=== PATIENT | female | born 1940 | race Caucasian/White ===

== ENCOUNTER → 2017-10-25 | Day surgery (SDC) | payer MEDICARE, OTHER ==
--- NOTE | 2017-10-14 12:41 | MH ---
cc: JAKE AMIN DATE OF ADMISSION 10/25/2017 ADMISSION DIAGNOSIS Cataract right eye. HISTORY OF PRESENT ILLNESS This 77-year-old white female is coming through [facility] for the purpose of a lens extraction of the right eye with intraocular lens implant under local anesthesia. She has noticed decreasing visual acuity interfering with her daily activities and elected to have the above procedure. Her best corrected visual acuity is counting fingers at two feet in the right eye and it is 20/100 -1 in the left eye in room light. PAST MEDICAL HISTORY The patient has a history of: 1. Hypertension 2. Heart disease 3. She has a stent in her heart and low ejection fraction. PAST SURGICAL HISTORY 1. Having the stent put in the heart 2. She has had laser peripheral iridectomy of both eyes for 3. narrow anterior chamber angles. MEDICATIONS Daily medications include: 1. Lisinopril 2. Carvedilol 3. Plavix 4. Atorvastatin 5. Aspirin ALLERGIES No known allergies. SOCIAL HISTORY She stopped smoking three years ago and has smoked over 50 years. She does not drink alcohol. FAMILY HISTORY Noncontributory REVIEW OF SYSTEMS HEAD: Patient denies severe headaches, dizziness or recent head injury. EARS: Patient denies hearing loss, ear pain, discharge or ringing in the ears. NOSE: Patient denies nasal discharge, obstruction or frequent colds. MOUTH AND THROAT: Patient denies soreness of the mouth or tongue, bleeding gums, trouble swallowing, changes in voice or sore throat. NECK: Patient denies neck pain or swelling, limitation of neck movement or neck injury. CARDIOPULMONARY SYSTEM: The patient does get some shortness of breath and sleeps on several pillow due to her decrease in heart function. She has a chronic cough from years of smoking. No orthopnea, sputum production, hemoptysis, chest pain, wheezing, or light-headedness. GI SYSTEM: Patient denies poor appetite, nausea, vomiting, abdominal pain, ulcers, hemorrhoids or change in bowel habits. SYSTEM: The patient gets up twice a night to urinate, but denies dysuria or change in urine color. NERVOUS SYSTEM: Patient denies convulsions, vertigo, stroke, numbness or weakness. PHYSICAL EXAMINATION VITAL SIGNS: Blood pressure is 100/78, pulse 72, respirations 16. HEAD: Normocephalic, atraumatic. NOSE: Without rhinorrhea. THROAT: Clear. NECK: Supple. CHEST: Clear. HEART: Regular rhythm with murmur. ABDOMEN: Without tenderness. EXTREMITIES: Without edema. NEUROLOGIC: Within normal limits. MENTAL STATUS: Within normal limits. EYE EXAMINATION The patient's best corrected visual acuity is counting fingers at two feet in the right eye and 20/100 -1 in the left eye in room light. She can only read 20/100 sized print up close. Visual kumar are full to confrontation testing. Extraocular muscle exam reveals full versions with orthophoria to Hirschberg testing. Pupils are 2 mm equal, round, and reactive to light without afferent defect. Anterior segment examination reveals a laser peripheral iridectomy present in each eye. The patient has nuclear sclerotic, posterior subcapsular, and cortical cataract changes in both eyes, greater in the right eye than the left. Intraocular pressure is 15 in the right eye and 14 in the left by applanation tonometry. Dilated fundus exam revealed sharp disks with cup-to-disk ratio 0.55 in each eye. The macula and background are within normal limits. IMPRESSION 1. Cataract right eye greater than left. 2. Status post peripheral iridectomy in each eye for a narrow anterior chamber angle. PLAN The plan is lens extraction of the right eye with intraocular lens implant under local anesthesia through [facility]. Iris retractors will be used as the patient does not dilate well. The patient has been cleared medically. She has been counseled as to the risks, benefits and alternatives and elected to proceed. I feel that cataract surgery will improve the quality of life and activities of daily living in this patient. MD CATIE Campbell/PRUDENCE /11:47 AM /12:28 PM
[~2017-10-25] VITALS: Ht 160 cm; Wt 57.2 kg
[~2017-10-25] MED LIST: *RESP: ALBUTEROL 2.5 MG/3 ML NEB (PRN) PERIprocedural Use ONLY NEB ONE; ACETYLCHOLINE CHL OPHT SOLN 1:100 2 ML VIAL ONE; ASPI1TAB69 PO; ASPI81TA23 PO; ATOR40TA16 PO; BUME0.5T PO; CARV3.12 PO; CHLORHEXIDINE GLUCONATE 2 % 1 PACK (2 CLOTHS) TOPICAL PRN; CLOP75TA PO; EPINEPHrine HCL (1:10,000) 1 MG/10 ML SYRINGE ONE; HYALURONIDASE/LIDOCAINE/BUPIVACAINE 5 ML SYR RIGHT EYE ONE; INSULIN HUMAN REGULAR 1,000 UNITS/10 ML VIAL SQ PRN; LACTATED RINGER'S 1000 ML IV PRN; LISI2.5T3 PO; METOPROLOL TARTRATE 25 MG TAB PO PRN; PILOCARPINE HCL 2% OPHT SOLN 15 ML BTL ONE; POVIDONE IODINE 5% (ANTISEPSIS KIT) 4 APPLICATIONS EACH NARE PRN; PROPARACAINE HCL 0.5% OPHT SOLN 15 ML BTL RIGHT EYE ONE; PROPOFOL 200 MG/20 ML AMP ONE; SODIUM CHLORID 0.9% 500 ML IV PRN; TOBRAMYCIN/DEXAMETHASONE OPTH OINT 3.5 GM TUBE ONE; VENTAER INH; VISCOAT OPHT IRRIG SOLN 0.75 ML SYRINGE ONE
[2017-10-25 08:50] VITALS: PULSE 122
[2017-10-25] MEDS: GATIFLOXACIN 0.5% OPHT SOLN 2.5 ML BTL RIGHT EYE SCH ×4 (08:50→08:59)
[2017-10-25] MEDS: PHENYLEPHRINE HCL 2.5% OPTH SOLN 2 ML BTL RIGHT EYE SCH ×4 (08:50→08:59)
[2017-10-25] MEDS: CYCLOPENTOLATE HCL 1% OPHT SOLN 2 ML BTL RIGHT EYE SCH ×4 (08:50→08:59)
[2017-10-25] MEDS: DICLOFENAC SOD 0.1% OPHT SOLN 2.5 ML BTL RIGHT EYE SCH ×4 (08:50→08:59)
[2017-10-25] MEDS: TROPICAMIDE 1% OPHT SOLN 15 ML BTL RIGHT EYE SCH ×4 (08:50→08:59)
[2017-10-25 09:20] VITALS: PULSE 106
[2017-10-25 11:16] VITALS: TEMP 97.8
[2017-10-25 11:45] VITALS: BP 111/68
[2017-10-25 12:35] VITALS: PULSE 98; RESP 16; O2SAT 92
--- NOTE | 2017-10-26 15:28 | MP ---
cc: JAKE LEE DATE OF SURGERY: 10/25/2017 PREOPERATIVE DIAGNOSIS: Cataract right eye. POSTOPERATIVE DIAGNOSIS: Cataract right eye. OPERATION: Extracapsular cataract extraction with posterior chamber intraocular lens implant by phacoemulsification, right eye. SURGEON: Jake Lee M.D. ANESTHESIA: Local. COMPLICATIONS: None. INDICATIONS: See history and physical previously dictated. OPERATIVE PROCEDURE: The patient had adequate retrobulbar and eyelid blocks administered in the holding area and was brought to the operating room. The right eye was prepped and draped in the usual sterile ophthalmic manner. A lid speculum was inserted in the right eye. A 4-0 silk bridle suture was placed through the conjunctiva near the superior rectus muscle and it was tagged to the drape. A fornix-based conjunctival flap was prepared spanning approximately 5 mm in width. Hemostasis was obtained with wet-field cautery. A 3.5 mm groove was made 1 mm from the limbus and dissected up to the limbus in the form of a scleral pocket incision. A stab incision was then made at the 2 o'clock position. Viscoelastic was injected into the anterior chamber. In order to maintain an adequately dilated pupil, it was elected to use iris retractors in this case. Stab incisions were made at the 1 o'clock, 3 o'clock, 5 o'clock, 8 o'clock and 10 o'clock positions. Iris retractors were then inserted through the stab incisions in the peripheral cornea and positioned to enlarge the size of the pupil. The anterior chamber was entered with a 2.75 mm keratome through the scleral pocket incision. A 360 degree continuous curvilinear capsulorrhexis was then performed. Vision blue dye was necessary in performing the capsulorrhexis in order to see the edge of the tear clearly. Hydrodissection was utilized to divide the nucleus into inner and outer components and to separate the cortex from the capsule. Phacoemulsification was then utilized to remove the nucleus. The outer nuclear layer was removed with irrigation and aspiration and short bursts of ultrasound as necessary. The cortex was removed with the irrigation-aspiration handpiece. The posterior capsule was polished with the capsule polisher. Viscoelastic was injected into the capsular bag. The intraocular lens was inspected and found to be in good condition. The lens utilized was a Oliverio, model SA60AT with a power of +23 diopters. The lens was inserted into the capsular bag. The five iris retractors were removed. The viscoelastic in the anterior chamber was then removed with the irrigation-aspiration hand piece. Viscoelastic was also removed from beneath the intraocular lens. The anterior chamber was filled with Miochol-E through the stab incision and pressurized. The wound was closed with one interrupted 10-0 nylon suture. The wound was checked for leaks and there were none. The 4-0 bridle suture was removed. The conjunctival flap was brought down over the wound and secured with cautery. Pilocarpine 2% eye drops were instilled topically. The lid speculum was removed. TobraDex ophthalmic ointment was applied. The eye was double patched and shielded. The patient tolerated the procedure well and left the Operating Room in satisfactory condition. MD CATIE Campbell/scott /1:06 PM /3:21 PM
== END | disposition home or self-care (01) ==
LOC: PHSDC 08:08
PROVIDERS: ATTEND Ophthalmology
DX: H26.9 Unspecified cataract (principal); I10 Essential (primary) hypertension; Z79.82 Long term (current) use of aspirin; Z87.891 Personal history of nicotine dependence
CPT/HCPCS: 00142; 66984; J0171; J7040; J7613; V2632

== ENCOUNTER 2017-11-29 18:43 | Inpatient (IN) | payer MEDICARE, OTHER ==
[~2017-11-29] VITALS: Ht 157.5 cm; Wt 54.0 kg
[2017-11-29] MEDS: SODIUM BICARBONATE 8.4% INJ 150 MEQ in WATER STERILE FOR INJ 850 ML IV SCH (01:00)
[~2017-11-29 18:43] MED LIST changes: -*RESP: ALBUTEROL 2.5 MG/3 ML NEB (PRN) PERIprocedural Use ONLY NEB ONE; -ACETYLCHOLINE CHL OPHT SOLN 1:100 2 ML VIAL ONE; -ASPI1TAB69 PO; -CHLORHEXIDINE GLUCONATE 2 % 1 PACK (2 CLOTHS) TOPICAL PRN; -EPINEPHrine HCL (1:10,000) 1 MG/10 ML SYRINGE ONE; -HYALURONIDASE/LIDOCAINE/BUPIVACAINE 5 ML SYR RIGHT EYE ONE; -INSULIN HUMAN REGULAR 1,000 UNITS/10 ML VIAL SQ PRN; -LACTATED RINGER'S 1000 ML IV PRN; -METOPROLOL TARTRATE 25 MG TAB PO PRN; -PILOCARPINE HCL 2% OPHT SOLN 15 ML BTL ONE; -POVIDONE IODINE 5% (ANTISEPSIS KIT) 4 APPLICATIONS EACH NARE PRN; -PROPARACAINE HCL 0.5% OPHT SOLN 15 ML BTL RIGHT EYE ONE; -PROPOFOL 200 MG/20 ML AMP ONE; -SODIUM CHLORID 0.9% 500 ML IV PRN; -TOBRAMYCIN/DEXAMETHASONE OPTH OINT 3.5 GM TUBE ONE; -VISCOAT OPHT IRRIG SOLN 0.75 ML SYRINGE ONE
[2017-11-29 18:51] VITALS: PULSE 80; RESP 17
[2017-11-29] MEDS ORDERED: SODIUM CHLORIDE 0.9% FLUSH 10 ML FLUSH IV FLUSH PRN ×2 (19:00→22:15)
--- NOTE | 2017-11-29 19:08 | PD ---
Physical Exam Narrative General: The patient is a well-developed thin appearing female in no acute distress who is disheveled appearing on examination, stool incontinence is noted. Head and Neck exam: Head is normocephalic atraumatic. Eyes: EOMI, pupils are equal round and reactive to light. Nose: Midline septum with pink mucous membranes Mouth: Dentition unremarkable. Moist mucus membranes. Posterior oropharynx is not erythematous. No tonsillar hypertrophy. Uvula midline. Airway patent. Neck: No palpable lymphadenopathy. No nuchal rigidity. No thyromegaly. Cardiovascular: Irregularly irregular with a rate in the 1 teens without murmurs, gallops, or rubs. Lungs: Decreased breath sounds in bilateral bases with scattered rhonchi and frequent productive sounding cough. No crackles audible. Abdomen: Soft, without tenderness to palpation in all 4 quadrants of the abdomen. No guarding, rebound, or rigidity. Normal bowel sounds are audible. No tenderness on palpation of McBurney's point. Negative Gomes sign. Extremities: No clubbing or cyanosis. The patient has 2+ pitting edema bilateral lower extremities. 2+ pulses in all 4 extremities. Back: No spinous process tenderness to palpation. No costovertebral angle tenderness to palpation. Neurologic Exam: Grossly nonfocal with generalized weakness. Her weakness is most prominent bilateral lower extremities. The patient is only oriented to person, however not place, time, or situation Data Data Last Documented VS Vital Signs Date Time Temp Pulse Resp B/P (MAP) Pulse Ox O2 Delivery O2 Flow Rate FiO2 11/29/17 20:04 120 18 Nasal Cannula 2.00 11/29/17 19:30 97.7 102/89 (93) Orders Orders Electrocardiogram (11/29/17 19:00) Ammonia (11/29/17 19:00) Complete Blood Count With Diff (11/29/17 19:00) Comprehensive Metabolic Panel (11/29/17 19:00) Creatine Kinase (Cpk) (11/29/17 19:00) Prothrombin Time / Inr (Pt) (11/29/17 19:00) Act Partial Throm Time (Ptt) (11/29/17 19:00) Troponin I (11/29/17 19:00) Thyroid Stimulating Hormone (11/29/17 19:00) Urinalysis - C+S If Indicated (11/29/17 19:00) Lactic Acid Sepsis Protocol (11/29/17 19:00) Blood Culture (11/29/17 19:00) Chest, Single Ap (11/29/17 19:00) Ct Brain W/O Iv Contrast(Rout) (11/29/17 19:00) Blood Glucose (11/29/17 19:00) Ecg Monitoring (11/29/17 19:00) Iv Access Insert/Monitor (11/29/17 19:00) Oximetry (11/29/17 19:00) Sodium Chloride 0.9% Flush (Ns Flush) (11/29/17 19:00) Drug Screen, Random Urine (11/29/17 19:00) Alcohol (Ethanol) (11/29/17 19:00) Pelvis Complete, Min 3 Vws (11/29/17 ) Urinary Catheter Management MAGUI.Q8H (11/29/17 19:28) Sodium Chlor 0.9% 1000 Ml Inj (Ns 1000 M (11/29/17 20:30) Warming Tama / Warming Syst PRN (11/29/17 20:19) Ceftriaxone Inj (Rocephin Inj) (11/29/17 20:30) Azithromycin Inj (Zithromax Inj) (11/29/17 20:30) Urine Culture (11/29/17 19:34) CKMB (11/29/17 19:34) CKMB% (11/29/17 19:34) B-Type Natriuretic Peptide (11/29/17 21:16) Admit Order (Ed Use Only) (11/29/17 21:41) Labs Laboratory Tests Test 11/29/17 19:34 White Blood Count 9.2 TH/MM3 Red Blood Count 4.18 MIL/MM3 Hemoglobin 11.2 GM/DL Hematocrit 34.8 % Mean Corpuscular Volume 83.4 FL Mean Corpuscular Hemoglobin 26.7 PG Mean Corpuscular Hemoglobin Concent 32.0 % Red Cell Distribution Width 22.1 % Platelet Count 146 TH/MM3 Mean Platelet Volume 9.6 FL Neutrophils (%) (Auto) 85.0 % Lymphocytes (%) (Auto) 6.6 % Monocytes (%) (Auto) 8.3 % Eosinophils (%) (Auto) 0.0 % Basophils (%) (Auto) 0.1 % Neutrophils # (Auto) 7.8 TH/MM3 Lymphocytes # (Auto) 0.6 TH/MM3 Monocytes # (Auto) 0.8 TH/MM3 Eosinophils # (Auto) 0.0 TH/MM3 Basophils # (Auto) 0.0 TH/MM3 CBC Comment AUTO DIFF Differential Comment AUTO DIFF CONFIRMED Platelet Estimate LOW Platelet Morphology Comment ENLARGED Tear Drop Cells 1+ Ovalocytes 1+ Solen Cells 1+ Keratocytes 1+ Prothrombin Time 21.1 SEC Prothromb Time International Ratio 2.1 RATIO Activated Partial Thromboplast Time 38.0 SEC Urine Color DARK-BROWN Urine Turbidity CLOUDY Urine pH 5.5 Urine Specific [place] 1.018 Urine Protein 100 mg/dL Urine Glucose (UA) NEG mg/dL Urine Ketones NEG mg/dL Urine Occult Blood SMALL Urine Nitrite NEG Urine Bilirubin SMALL Urine Urobilinogen 2.0 MG/DL Urine Leukocyte Esterase TRACE Urine RBC 9 /hpf Urine WBC 17 /hpf Urine Squamous Epithelial Cells 4 /hpf Urine Bacteria MOD /hpf Urine Hyaline Casts INNUM /lpf Urine Granular Casts 12 /lpf Urine Mucus MANY /lpf Microscopic Urinalysis Comment CULTURE INDICATED Urine Random Creatinine 154.4 MG/DL Urine Random Sodium 8 MEQ/L Blood Urea Nitrogen 118 MG/DL Creatinine 3.80 MG/DL Random Glucose 107 MG/DL Total Protein 6.3 GM/DL Albumin 3.0 GM/DL Calcium Level 8.1 MG/DL Alkaline Phosphatase 196 U/L Aspartate Amino Transf (AST/SGOT) 460 U/L Alanine Aminotransferase (ALT/SGPT) 559 U/L Total Bilirubin 4.6 MG/DL Sodium Level 131 MEQ/L Potassium Level 5.9 MEQ/L Chloride Level 95 MEQ/L Carbon Dioxide Level 22.4 MEQ/L Anion Gap 14 MEQ/L Estimat Glomerular Filtration Rate 12 ML/MIN Lactic Acid Level 2.5 mmol/L Ammonia LESS THAN 10 MCMOL/L Total Creatine Kinase 405 U/L Creatine Kinase MB 13.9 NG/ML Creatine Kinase MB % 3.4 % Troponin I 0.14 NG/ML Thyroid Stimulating Hormone 3rd Gen 4.140 uIU/ML Urine Opiates Screen NEG Urine Barbiturates Screen NEG Urine Amphetamines Screen NEG Urine Benzodiazepines Screen NEG Urine Cocaine Screen NEG Urine Cannabinoids Screen NEG Ethyl Alcohol Level LESS THAN 3 MG/DL [facility] Medical Record Reviewed: Yes Supervised Visit with BRYAN: Yes Interpretation(s) Last Impressions Head CT 3/5/18 1900 Signed Impressions: Service Date/Time: Wednesday, November 29, 2017 19:49 - CONCLUSION: 1. No acute findings in the brain. 2. Unilateral perisylvian atrophy on the left side suggests possible old infarction. Everton English MD Chest X-Ray 11/29/171899 Signed Impressions: Service Date/Time: Wednesday, November 29, 2017 19:42 - CONCLUSION: Right lower lung consolidation, increased in size when compared to prior chest x-ray 2014. The left lung is clear. Everton English MD Pelvis X-Ray 11/29/17 Signed Impressions: Service Date/Time: Wednesday, November 29, 2017 19:39 - CONCLUSION: The bony pelvic ring is grossly intact. Everton English MD Chest X-Ray 11/29/17 Signed Impressions: Service Date/Time: Wednesday, November 29, 2017 22:19 - CONCLUSION: ET tube tip is 1.4 cm above the alan. Stable large area of consolidation right lower lobe. Everton English MD Narrative Course I, Dr. Nino, have reviewed the advance practice practitioner's documentation and am in agreement, met with the patient face to face, made the diagnosis, and the medical decision making was done by me. The patient was initially evaluated by Joana, the physician anesthesia assistant. Please see their complete history and physical. *My assessment and Findings: The patient presents with a history of reportedly not being up and about like she normally is at home. Her neighbors called for a well person check at her home and the patient was found to be confused. The patient was brought in by ambulance services for evaluation and treatment. The patient was initially refusing to be transported and was placed under a Doll act due to concern for her safety. The patient was noted to be incontinent of stool prior to arrival. During the course of the patient's emergency department visit, the patient's history, examination, and differential diagnosis were reviewed with the patient. The patient was placed on a garbage worker with oximetry and frequent blood pressure monitoring. The patient had IV access obtained and blood work sent for analysis. The patient was initially provided normal saline 1 L IV fluid bolus when she was noted to be hypotensive down to a systolic blood pressure of 75. The patient was noted to be hypothermic with a temperature of 97. The patient was placed in a bear hugger. Blood cultures 2 were drawn, lactic acid was sent for analysis. The patient on chest x-ray had a an infiltrate noted. The patient was started on Rocephin 1 g IV, Zithromax 500 IV. The patient's laboratory studies were reviewed and remarkable for a white count of 9.2, hemoglobin 11.2, platelets 146 with 85 neutrophils, lymphocytes 6.6, monocytes 8.3, CMP was remarkable for a sodium of 131, potassium 5.9 with slight hemolysis, BUN 118, creatinine 3.80 consistent with acute renal failure. A Marcos catheter was placed to gravity. The patient had dark urine and only 100 mL out. The patient was continued on IV fluids. Calcium is 8.1, total bilirubin 4.6, AST 460, ALT 559, alk phos 196, ammonia level is less than 10, CPK 405, MB percent is 3.4, troponin I 0.14 which may be elevated related to the patient's tachycardia, and renal failure, however serial enzymes will be done. TSH 4.14, PT 21.1, INR 2.1, PTT 38, urinalysis shows small occult blood 9 RBCs 17 WBCs, moderate bacteria, culture indicated. Urine drug screen is negative, alcohol level less than 3. Tylenol and salicylate level are pending. Radiology studies were reviewed and remarkable for a chest x-ray that showed a right lower lung consolidation. CT scan of the brain showed no acute abnormality. Pelvis x-ray showed no acute abnormality. The patient was admitted to the hospital in critical condition and sent to a bed under the care of the infrastructure analyst service. While the patient was being observed in the emergency department the patient was noted to have cardiopulmonary arrest. The patient was found to be in asystole. The patient had ACLS protocol followed and was bagged with the BVM in preparation for intubation. Patient had chest compressions provided. The crash cart was brought to the patient's bedside and pads were applied to the patient's chest. The patient was given an initial dose of epinephrine. The patient's intensive care physician, Dr. Cui arrived at the patient's bedside and assumed care. Diagnosis Primary Impression: Pneumonia Additional Impressions: Renal failure Hyperkalemia Cardiopulmonary arrest with successful resuscitation Admitting Information Admitting Physician Requests: Admit Michelle Nino MD Nov 29, 2017 19:08
[2017-11-29 19:30] VITALS: BP 102/89; PULSE 110; RESP 18; TEMP 97.7
[2017-11-29 20:10] LABS: AUTOMATED NEUTROPHIL # 7.8 TH/MM3 (1.8-7.7); BASOPHIL % 0.1 % (0.0-2.0); HEMATOCRIT 34.8 % (35.0-46.0); HEMOGLOBIN 11.2 GM/DL (11.6-15.3); LYMPH % 6.6 % (9.0-44.0); LYMPHOCYTE # 0.6 TH/MM3 (1.0-4.8); MEAN CELL VOLUME 83.4 FL (80.0-100.0); MEAN CORPUSCULAR HEMOGLOBIN 26.7 PG (27.0-34.0); MEAN PLATELET VOLUME 9.6 FL (7.0-11.0); MONO % 8.3 % (0.0-8.0); MONOCYTE # 0.8 TH/MM3 (0-0.9); PLATELET COUNT 146 TH/MM3 (150-450); RED BLOOD COUNT 4.18 MIL/MM3 (4.00-5.30); RED CELL DISTRIBUTION WIDTH 22.1 % (11.6-17.2); WHITE BLOOD COUNT 9.2 TH/MM3 (4.0-11.0)
--- NOTE | 2017-11-29 20:16 | RADRPT ---
EXAM DATE/TIME: 11/29/2017 19:42 [facility] COMPARISON: CHEST SINGLE AP, May 12, 2015, 4:41. INDICATIONS : Syncope MEDICAL HISTORY : None. SURGICAL HISTORY : None. ENCOUNTER: Initial ACUITY: 1 day PAIN SCORE: Non-responsive. LOCATION: chest FINDINGS: Chronic consolidative ST in the right mid and lower lung with loss of delineation of the right hemidi aphragm and loss of the right heart border, similar, but larger, to prior chest x-ray in 2015. The l eft lung is clear. Left costophrenic angle and hemidiaphragms are well delineated. CONCLUSION: Right lower lung consolidation, increased in size when compared to prior chest x-ray 2014. The left lung is clear. Everton English MD on November 29, 2017 at 20:13 Board Certified Radiologist. This report was verified electronically.
--- NOTE | 2017-11-29 20:19 | RADRPT ---
EXAM DATE/TIME: 11/29/2017 19:49 [facility] COMPARISON: No previous studies available for comparison. INDICATIONS : Altered mental status. RADIATION DOSE: 56.35 CTDIvol (mGy) MEDICAL HISTORY : Cardiovascular disease. Hypertension. SURGICAL HISTORY : None. ENCOUNTER: Initial ACUITY: 1 day PAIN SCALE: 0/10 LOCATION: cranial TECHNIQUE: Multiple contiguous axial images were obtained of the head. Using automated exposure control and adj ustment of the mA and/or kV according to patient size, radiation dose was kept as low as reasonably a chievable to obtain optimal diagnostic quality images. DICOM format image data is available electro nically for review and comparison. FINDINGS: CEREBRUM: The ventricles are normal for age. No evidence of midline shift, mass lesion, hemorrhage or acute in farction. Mild asymmetric atrophy about the left sylvian fissure. No extra-axial fluid collections are seen. POSTERIOR FOSSA: The cerebellum and brainstem are intact. The 4th ventricle is midline. The cerebellopontine angle i s unremarkable. EXTRACRANIAL: The visualized portion of the orbits is intact. SKULL: The calvaria is intact. No evidence of skull fracture. CONCLUSION: 1. No acute findings in the brain. 2. Unilateral perisylvian atrophy on the left side suggests possible old infarction. Everton English MD on November 29, 2017 at 20:16 Board Certified Radiologist. This report was verified electronically.
[2017-11-29 20:22] LABS: INTERNATIONAL NORMALIZED RATIO 2.1 RATIO; PROTHROMBIN TIME - PATIENT 21.1 SEC (9.8-11.6)
--- NOTE | 2017-11-29 20:25 | RADRPT ---
EXAM DATE/TIME: 11/29/2017 19:39 [facility] COMPARISON: No previous studies available for comparison. INDICATIONS : Evaluate pelvis for trauma, possible fall MEDICAL HISTORY : None. SURGICAL HISTORY : None. ENCOUNTER: Initial ACUITY: 1 day PAIN SCORE: Non-responsive. LOCATION: Bilateral Pelvis FINDINGS: Diffuse osteopenia. The bony pelvic ring is grossly intact. Mild degenerative changes in the hips. The primary and secondary trabecular pattern of the femoral neck is intact. The arcuate lines of th e sacrum are symmetrical. Vascular calcification in the proximal thighs. CONCLUSION: The bony pelvic ring is grossly intact. Everton English MD on November 29, 2017 at 20:23 Board Certified Radiologist. This report was verified electronically.
[2017-11-29] MEDS ORDERED: AZITHROMYCIN INJ 500 MG in SODIUM CHLOR 0.9% 250 ML INJ 250 ML IV ONE (20:30)
[2017-11-29] MEDS ORDERED: cefTRIAXone INJ 1,000 MG in SODIUM CHLORIDE 0.9% INJ 100 ML IV ONE (20:30)
[2017-11-29] MEDS ORDERED: SODIUM CHLOR 0.9% 1000 ML INJ 1,000 ML IV ONE (20:30)
[2017-11-29 20:33] LABS: ALT (GPT) 559 U/L (10-53); LACTIC ACID SEPSIS PROTOCOL 2.5 mmol/L (0.4-2.0)
[2017-11-29 20:40] LABS: BACTERIA, URINE MOD /hpf; BILIRUBIN, URINE SMALL (NEG); BLOOD, URINE SMALL (NEG); GLUCOSE,URINE NEG (NEG); HYALINE CAST, URINE INNUM /lpf (RARE); KETONE, URINE NEG (NEG); MUCUS URINE MANY /lpf (OCC); NITRITE,URINE NEG (NEG); PH, URINE 5.5 (5.0-8.5); SQUAMOUS EPITHELIAL CELL URINE 4 /hpf (0-5); URINE LEUKOCYTE ESTERASE TRACE (NEG)
--- NOTE | 2017-11-29 20:45 | PD ---
HPI Chief Complaint: Altered Mental Status Time Seen by Provider: 18:55 Travel History International Travel<30 days: No Contact w/Intl Traveler<30days: No Traveled to known affect area: No History of Present Illness HPI 77-year-old female presents to the ED via EMS for evaluation of altered mental status. Per EMS report the neighbors called for a well check. The patient was placed under Doll Act by YA[facility] on scene. On presentation the patient is alert to self only. She is unable to provide any real meaningful history. She is moving extremities spontaneously but she does not really follow commands. PFSH Past Medical History Cancer: No Cardiovascular Problems: Yes (HEART DISEASE W/ LOW EF) Diabetes: No Diminished Hearing: No Endocrine: No Genitourinary: No Hepatitis: No Hiatal Hernia: No Hypertension: Yes Immune Disorder: No Musculoskeletal: No Neurologic: Yes (NEUROPATHY IN RIGHT HAND) Psychiatric: Yes (told she has schizophrenia yrs ago but doesn't take meds ) Reproductive: No Respiratory: Yes (SOB/ORTHOPNEA) Immunizations Current: Yes Thyroid Disease: No Tetanus Vaccination: < 5 Years Influenza Vaccination: No Menopausal: Yes : 0 Past Surgical History Abdominal Surgery: No AICD: No Body Medical Devices: STENTS Cardiac Surgery: Yes (STENTS) Ear Surgery: No Endocrine Surgery: No Eye Surgery: No Genitourinary Surgery: No Gynecologic Surgery: No Joint Replacement: No Oral Surgery: No Pacemaker: No Thoracic Surgery: No Other Surgery: Yes Social History Alcohol Use: No Tobacco Use: Yes (smoked 21 years, quit September 2014) Substance Use: No Allergies-Medications (Allergen,Severity, Reaction): Coded Allergies: No Known Allergies (Verified Allergy, Unknown, 10/25/17) Reported Meds & Prescriptions Reported Meds & Active Scripts Active Ventolin Hfa 18 GM Inh (Albuterol Sulfate) 90 Mcg/Act Aer 2 Puff INH Q4-6H PRN Bumetanide 0.5 Mg Tab 0.5 Mg PO DAILY Lisinopril 2.5 Mg Tab 2.5 Mg PO DAILY Reported Aspirin EC (Aspirin) 81 Mg Tabdr 81 Mg PO DAILY Carvedilol 3.125 Mg Tab 3.125 Mg PO BID Atorvastatin (Atorvastatin Calcium) 40 Mg Tab 40 Mg PO HS Clopidogrel (Clopidogrel Bisulfate) 75 Mg Tab 75 Mg PO DAILY Review of Systems Except as stated in HPI: all other systems reviewed are Neg Physical Exam Narrative GENERAL: Thin, pale, foul-smelling white female in no acute distress. Alert, oriented to self only. SKIN: Focused skin assessment warm/dry. Ecchymosis over the buttocks area. HEAD: Normocephalic. Atraumatic. EYES: No scleral icterus. No injection or drainage. PERRLA. EOMI. NECK: Supple, trachea midline. No JVD or lymphadenopathy. CARDIOVASCULAR: Irregularly irregular rate and rhythm without murmurs, gallops, or rubs. RESPIRATORY: Breath sounds coarse bilaterally. Bilaterally. No accessory muscle use. GASTROINTESTINAL: Abdomen soft, non-tender, nondistended. Active bowel sounds. Incontinent of feces. MUSCULOSKELETAL: No cyanosis. 2+ pitting edema to the mid thigh bilaterally. BACK: Nontender without obvious deformity. No CVA tenderness. Data Data Last Documented VS Vital Signs Date Time Temp Pulse Resp B/P (MAP) Pulse Ox O2 Delivery O2 Flow Rate FiO2 11/29/17 20:04 120 18 Nasal Cannula 2.00 11/29/17 19:30 97.7 102/89 (93) Orders Orders Electrocardiogram (11/29/17:00) Ammonia (11/29/17:00) Complete Blood Count With Diff (11/29/17:) Comprehensive Metabolic Panel (11/29/17:) Creatine Kinase (Cpk) (11/29/17:) Prothrombin Time / Inr (Pt) (11/29/17:00) Act Partial Throm Time (Ptt) (11/29/17:00) Troponin I (11/29/17:) Thyroid Stimulating Hormone (11/29/17:) Urinalysis - C+S If Indicated (11/29/17:00) Lactic Acid Sepsis Protocol (11/29/17:00) Blood Culture (11/29/17:00) Chest, Single Ap (11/29/17:) Ct Brain W/O Iv Contrast(Rout) (11/29/17 19:00) Blood Glucose (11/29/17:00) Ecg Monitoring (11/29/17:00) Iv Access Insert/Monitor (11/29/17:) Oximetry (11/29/17:) Sodium Chloride 0.9% Flush (Ns Flush) (11/29/17 19:00) Drug Screen, Random Urine (11/29/17 19:00) Alcohol (Ethanol) (11/29/17 19:00) Pelvis Complete, Min 3 Vws (11/29/17 ) Urinary Catheter Management MAGUI.Q8H (11/29/17 19:28) Sodium Chlor 0.9% 1000 Ml Inj (Ns 1000 M (11/29/17 20:30) Warming Dayhoit / Warming Syst PRN (11/29/17 20:19) Ceftriaxone Inj (Rocephin Inj) (11/29/17 20:30) Azithromycin Inj (Zithromax Inj) (11/29/17 20:30) Urine Culture (11/29/17 19:34) CKMB (11/29/17 19:34) CKMB% (11/29/17 19:34) B-Type Natriuretic Peptide (11/29/17 21:16) Admit Order (Ed Use Only) (11/29/17 21:41) Labs Laboratory Tests Test 11/29/17 19:34 White Blood Count 9.2 TH/MM3 Red Blood Count 4.18 MIL/MM3 Hemoglobin 11.2 GM/DL Hematocrit 34.8 % Mean Corpuscular Volume 83.4 FL Mean Corpuscular Hemoglobin 26.7 PG Mean Corpuscular Hemoglobin Concent 32.0 % Red Cell Distribution Width 22.1 % Platelet Count 146 TH/MM3 Mean Platelet Volume 9.6 FL Neutrophils (%) (Auto) 85.0 % Lymphocytes (%) (Auto) 6.6 % Monocytes (%) (Auto) 8.3 % Eosinophils (%) (Auto) 0.0 % Basophils (%) (Auto) 0.1 % Neutrophils # (Auto) 7.8 TH/MM3 Lymphocytes # (Auto) 0.6 TH/MM3 Monocytes # (Auto) 0.8 TH/MM3 Eosinophils # (Auto) 0.0 TH/MM3 Basophils # (Auto) 0.0 TH/MM3 CBC Comment AUTO DIFF Differential Comment AUTO DIFF CONFIRMED Platelet Estimate LOW Platelet Morphology Comment ENLARGED Tear Drop Cells 1+ Ovalocytes 1+ Sunny Cells 1+ Keratocytes 1+ Prothrombin Time 21.1 SEC Prothromb Time International Ratio 2.1 RATIO Activated Partial Thromboplast Time 38.0 SEC Urine Color DARK-BROWN Urine Turbidity CLOUDY Urine pH 5.5 Urine Specific [place] 1.018 Urine Protein 100 mg/dL Urine Glucose (UA) NEG mg/dL Urine Ketones NEG mg/dL Urine Occult Blood SMALL Urine Nitrite NEG Urine Bilirubin SMALL Urine Urobilinogen 2.0 MG/DL Urine Leukocyte Esterase TRACE Urine RBC 9 /hpf Urine WBC 17 /hpf Urine Squamous Epithelial Cells 4 /hpf Urine Bacteria MOD /hpf Urine Hyaline Casts INNUM /lpf Urine Granular Casts 12 /lpf Urine Mucus MANY /lpf Microscopic Urinalysis Comment CULTURE INDICATED Urine Eosinophils NONE SEEN /HPF Urine Random Creatinine 154.4 MG/DL Urine Random Sodium 8 MEQ/L Blood Urea Nitrogen 118 MG/DL Creatinine 3.80 MG/DL Random Glucose 107 MG/DL Total Protein 6.3 GM/DL Albumin 3.0 GM/DL Calcium Level 8.1 MG/DL Alkaline Phosphatase 196 U/L Aspartate Amino Transf (AST/SGOT) 460 U/L Alanine Aminotransferase (ALT/SGPT) 559 U/L Total Bilirubin 4.6 MG/DL Sodium Level 131 MEQ/L Potassium Level 5.9 MEQ/L Chloride Level 95 MEQ/L Carbon Dioxide Level 22.4 MEQ/L Anion Gap 14 MEQ/L Estimat Glomerular Filtration Rate 12 ML/MIN Lactic Acid Level 2.5 mmol/L Ammonia LESS THAN 10 MCMOL/L Total Creatine Kinase 405 U/L Creatine Kinase MB 13.9 NG/ML Creatine Kinase MB % 3.4 % Troponin I 0.14 NG/ML Thyroid Stimulating Hormone 3rd Gen 4.140 uIU/ML Urine Opiates Screen NEG Urine Barbiturates Screen NEG Urine Amphetamines Screen NEG Urine Benzodiazepines Screen NEG Urine Cocaine Screen NEG Urine Cannabinoids Screen NEG Ethyl Alcohol Level LESS THAN 3 MG/DL MDM Medical Decision Making Medical Screen Exam Complete: Yes Emergency Medical Condition: Yes Differential Diagnosis Pneumonia versus UTI versus ACS versus sepsis versus other Narrative Course 77-year-old female brought in to the ED under Doll act after well check was initiated by her neighbors. On presentation the patient is alert, oriented 1. She intermittently answers questions appropriately. She intermittently follows directions. Temp 97.7, pulse 110, BP 102/89 on presentation. On exam the patient is pale, ill-appearing. She's been incontinent of feces. Heart rate irregularly irregular, no appreciable M/R/G. IV was established. Patient was placed on nasal cannula O2 Per record review the patient has a history of hypertension, CHF, CAD, DM. I can find no evidence of history of A. fib or warfarin use. EKG rate 114, A. fib with RVR. LBBB. CXR: Right lower lobe consolidation, increased as compared to chest x-ray . Left lung clear. Head CT: No acute findings in the brain. Unilateral perisylvian atrophy of the left side suggest possible old infarction. Pelvic x-ray: Bony pelvic ring is grossly intact. CBC: WBC 9.2, neutrophil predominant. Hemoglobin 11.2. Platelets 146. Coags: INR 2.1. CMP: Sodium 131, chloride 95. BUN 118, creatinine 3.8. Potassium 5.9, slightly hemolyzed. Calcium 8.1. LFTs: Bilirubin 4.6. AST 460. ALT 559. Alkaline phosphatase 196. Ammonia less than 10. Lactic acid 2.5. Cardiac enzymes: Troponin 0.14. TSH 4.140. UA: Dark brown, cloudy, small occult blood, small bilirubin, trace leukocyte esterase, 17 WBCs, moderate bacteria, innumerable Celina casts. Culture indicated. Patient was administered 1 L normal saline, 1 g ceftriaxone, 250 mg azithromycin IV. Patient is critically ill with multisystem organ failure. I spoke with Dr. Cui who agrees to accept the patient to the ICU. Please see medicine notes for disposition. Joana Lizarraga Nov 29, 2017 20:45
[2017-11-29 20:50] LABS: URINE COLOR DARK-BROWN (YELLW/STRAW)
[2017-11-29 20:53] LABS: ALKALINE PHOSPHATASE 196 U/L (45-117); AST (GOT) 460 U/L (15-37); BICARBONATE 22.4 MEQ/L (21.0-32.0); BLOOD UREA NITROGEN 118 MG/DL (7-18); CALCIUM 8.1 MG/DL (8.5-10.1); CHLORIDE 95 MEQ/L (98-107); GLOMERULAR FILTRATION RATE 12 ML/MIN (>89); GLUCOSE,RANDOM 107 MG/DL (74-106); SODIUM (NA) 131 MEQ/L (136-145); TOTAL BILIRUBIN ADULT 4.6 MG/DL (0.2-1.0); TOTAL PROTEIN 6.3 GM/DL (6.4-8.2); TROPONIN I 0.14 NG/ML (0.02-0.05)
[2017-11-29 21:20] LABS: BURR CELLS 1+ (NORMAL); KERATOCYTES 1+ (NORMAL); OVALOCYTES 1+ (NORMAL); TEARDROP RBCS 1+ (NORMAL)
[2017-11-29] MEDS: NOREPINEPHRINE INJ 4 MG in SODIUM CHLOR 0.9% 250 ML INJ 246 ML IV PRN (22:10)
[2017-11-29] MEDS ORDERED: SODIUM CHLOR 0.9% 1000 ML INJ 1,000 ML IV SCH (22:12)
[2017-11-29 22:15] VITALS: BP 124/60; PULSE 109; RESP 18; O2SAT 100
[2017-11-29] MEDS ORDERED: fentaNYL DRIP 250 ML IV PRN (22:15)
[2017-11-29] MEDS ORDERED: ONDANSETRON HCL 4 MG/2 ML VIAL IV PUSH PRN (22:15)
[2017-11-29] MEDS ORDERED: CHLORHEXIDINE GLUCONATE 2 % 1 PACK (2 CLOTHS) TOP PRN (22:15)
[2017-11-29] MEDS ORDERED: PROPOFOL 1000 MG/100 ML INJ 100 ML IV PRN (22:15)
[2017-11-29] MEDS ORDERED: MAGNESIUM HYDROXIDE SUSP 30 ML CUP PO PRN (22:15)
[2017-11-29] MEDS ORDERED: MISCELLANEOUS NURSING INFORMATION XX SCH (22:15)
[2017-11-29] MEDS ORDERED: LACTULOSE SYRUP 20 GM/30 ML CUP PO PRN (22:15)
[2017-11-29] MEDS ORDERED: SENNOSIDES 8.6 MG TAB PO PRN (22:15)
[2017-11-29] MEDS ORDERED: BISACODYL 10 MG SUPP RECTAL PRN (22:15)
[2017-11-29] MEDS ORDERED: RESP: ALBUTEROL 2.5 MG/3 ML NEB (PRN) INH (22:15)
[2017-11-29] MEDS ORDERED: DEXTROSE 50% IN WATER 50 ML VIAL(D50) IV PUSH ONE (22:30)
[2017-11-29] MEDS ORDERED: SODIUM BICARBONATE 8.4% SOLN 50 MEQ/50 ML VIAL SLOW IVP ONE (22:30)
[2017-11-29] MEDS ORDERED: VANCOMYCIN INJ 1,000 MG in SODIUM CHLOR 0.9% 250 ML INJ 250 ML IV ONE (22:30)
[2017-11-29] MEDS ORDERED: SODIUM POLYSTYRENE SULFONATE SUSP 15 GM/60 ML CUP PO ONE (22:30)
[2017-11-29] MEDS ORDERED: TERBUTALINE INJ 1 MG/ML AMP SQ PRN (22:30)
--- NOTE | 2017-11-29 22:32 | HHI.HP ---
[facility] Service Critical Care Medicine Primary Care Physician Amanda Livingston MD Admission Diagnosis a fib, liver failure, PNA, UTI Diagnosis: (1) Cardiopulmonary arrest with successful resuscitation Diagnosis: Principal (2) Acute respiratory failure Diagnosis: Principal (3) Elevated troponin Diagnosis: Principal (4) Elevated TSH Diagnosis: Secondary (5) Elevated levels of transaminase & lactic acid dehydrogenase Diagnosis: Principal (6) Thrombocytopenia Diagnosis: Secondary (7) Mitral regurgitation Diagnosis: Principal (8) Lactic acidosis Diagnosis: Principal (9) Left bundle branch block Diagnosis: Secondary (10) History of hypertension Diagnosis: Secondary (11) Renal failure Diagnosis: Principal (12) Hyperkalemia Diagnosis: Principal (13) Hyponatremia Diagnosis: Principal (14) Hyperlipidemia Diagnosis: Secondary (15) Acute systolic CHF (congestive heart failure) Diagnosis: Principal (16) Anemia Diagnosis: Principal (17) Septic shock Diagnosis: Principal Chief Complaint: Patient brought in under [employer] act per friend request not in normal state of health Travel History International Travel<30 Days: No Contact w/Intl Traveler <30 Da: No Traveled to Known Affected Are: No Sepsis Criteria SIRS Criteria (2 or more): RR > 20 or PaCO2 < 32 Severe Sepsis (+one): Hypoperfusion Septic Shock Criteria: Lactic acid >=4 Multiple Organ Dysfunction Syn: Evidence -2 organs failing Criteria Outcome: Meets multiple organ dys. criteria History of Present Illness This is a 77-year-old female. Admission 11/29/2017. Past medical history includes ischemic cardiopathy ejection fraction 15 %, coronary artery disease status post drug-eluting stent LAD, hypertension and dyslipidemia. Patient is a chronic left bundle branch block in 2014. Patient had a cardiac catheterization 2014 with stent placement LAD. Patient also had R CA stenosis is unknown if patient had follow-up for this. Patient presented to [facility] as a Doll act. Patient was a well percent check per her friend's request was noted to be quite disheveled. Workup included baseline labs revealed potassium 5.9. Sodium 132. Creatinine of 3. Normocytic anemia. Thrombocytopenia. Lactic acid 2.5. Elevated total bilirubin/liver function tests and elevated TSH. CT brain revealed possible old left-sided CVA. Chest x-ray revealed possible right lower lobe pneumonia. Revealed likely infection. Patient received 1 L normal saline along with 1 g ceftriaxone and 5 mg azithromycin. Patient was pancultured. In the emergency department. Patient CODE BLUE due to PEA arrest. CPR including 2 mg epinephrine, 1 ampule sodium bicarbonate and 1 g of calcium chloride. Patient was emergently intubated with an 8.0 ET tube without sedation. Coalesced approximate 5 minutes. Patient did go into V. tach and required 200 J defibrillation. Postresuscitation EKG revealed sinus tachycardia with PVCs. Left bundle branch block. Left axis deviation. Patient had significant abnormalities including hyperkalemia, lactic acidosis, elevated troponin 0 0.14 in multisystem organ failure with elevated transaminases and coags. Attempts to contact healthcare proxy and daughter Deanna Denney were unsuccessful. Review of Systems ROS Limitations: Intubated Past Family Social History Allergies: Coded Allergies: No Known Allergies (Verified Allergy, Unknown, 10/25/17) Past Medical History Ischemic cardiomyopathy ejection fraction 15% Severe mitral regurgitation Hypertension Dyslipidemia Coronary artery disease Cataracts History of tobaccoism DAP Past Surgical History Right eye cataract Bilateral iridectomy Cardiac catheterization 2014 Reported Medications Lisinopril 2.5 mg p.o. daily Carvedilol 3.125 mg p.o. twice daily Clopidogrel 75 mg p.o. daily Aspirin 81 mg p.o. daily Atorvastatin 40 mg p.o. daily Bumetanide 2.5 mg p.o. daily Active Ordered Medications Reviewed in EMR Family History Father with history of colostomy. Mother's history is unknown in reviewing past medical records. Social History 40 years tobacco. Quit 2 years ago. No documented alcohol or illicit drug use Physical Exam Vital Signs Vital Signs Date Time Temp Pulse Resp B/P (MAP) Pulse Ox O2 Delivery O2 Flow Rate FiO2 11/29/17 20:04 120 18 Nasal Cannula 2.00 11/29/17 20:04 Nasal Cannula 2.00 11/29/17 19:30 97.7 110 18 102/89 (93) 2.00 11/29/17 18:51 80 17 Physical Exam GENERAL: This is a 77-year-old female currently orotracheally intubated SKIN: Cool and dry. No rash HEAD: Atraumatic. Normocephalic. EYES: Right pupil 3 mm. Left pupil 2 mm. Sluggish.. No scleral icterus. No injection or drainage. ENT: No nasal bleeding or discharge. Mucous membranes pink and moist. NECK: Trachea midline. No JVD. CARDIOVASCULAR: IRR. S1, S2 no S4. 2/6 systolic murmur at the left lower sternal border RESPIRATORY: Diminished breath sounds right lower lobe. Few crackles appreciated. No wheezing GASTROINTESTINAL: Abdomen soft, non-tender, nondistended. Hypoactive bowel sounds are appreciated MUSCULOSKELETAL: Extremities without significant peripheral edema. Right femoral arterial and central line have been placed NEUROLOGICAL: Unresponsive on the ventilator. Positive gag and corneal reflex. Positive cough. Currently not withdrawing to pain. Laboratory Laboratory Tests Test 11/29/17 19:34 White Blood Count 9.2 Red Blood Count 4.18 Hemoglobin 11.2 Hematocrit 34.8 Mean Corpuscular Volume 83.4 Mean Corpuscular Hemoglobin 26.7 Mean Corpuscular Hemoglobin Concent 32.0 Red Cell Distribution Width 22.1 Platelet Count 146 Mean Platelet Volume 9.6 Neutrophils (%) (Auto) 85.0 Lymphocytes (%) (Auto) 6.6 Monocytes (%) (Auto) 8.3 Eosinophils (%) (Auto) 0.0 Basophils (%) (Auto) 0.1 Neutrophils # (Auto) 7.8 Lymphocytes # (Auto) 0.6 Monocytes # (Auto) 0.8 Eosinophils # (Auto) 0.0 Basophils # (Auto) 0.0 CBC Comment AUTO DIFF Differential Comment AUTO DIFF CONFIRMED Platelet Estimate LOW Platelet Morphology Comment ENLARGED Tear Drop Cells 1+ Ovalocytes 1+ Sunny Cells 1+ Keratocytes 1+ Prothrombin Time 21.1 Prothromb Time International Ratio 2.1 Activated Partial Thromboplast Time 38.0 Urine Color DARK-BROWN Urine Turbidity CLOUDY Urine pH 5.5 Urine Specific [place] 1.018 Urine Protein 100 Urine Glucose (UA) NEG Urine Ketones NEG Urine Occult Blood SMALL Urine Nitrite NEG Urine Bilirubin SMALL Urine Urobilinogen 2.0 Urine Leukocyte Esterase TRACE Urine RBC 9 Urine WBC 17 Urine Squamous Epithelial Cells 4 Urine Bacteria MOD Urine Hyaline Casts INNUM Urine Granular Casts 12 Urine Mucus MANY Microscopic Urinalysis Comment CULTURE INDICATED Blood Urea Nitrogen 118 Creatinine 3.80 Random Glucose 107 Total Protein 6.3 Albumin 3.0 Calcium Level 8.1 Alkaline Phosphatase 196 Aspartate Amino Transf (AST/SGOT) 460 Alanine Aminotransferase (ALT/SGPT) 559 Total Bilirubin 4.6 Sodium Level 131 Potassium Level 5.9 Chloride Level 95 Carbon Dioxide Level 22.4 Anion Gap 14 Estimat Glomerular Filtration Rate 12 Lactic Acid Level 2.5 Ammonia LESS THAN 10 Total Creatine Kinase 405 Creatine Kinase MB 13.9 Creatine Kinase MB % 3.4 Troponin I 0.14 Thyroid Stimulating Hormone 3rd Gen 4.140 Ethyl Alcohol Level LESS THAN 3 Date/Time Source Procedure Growth Status 11/29/17 19:40 Blood Peripheral Aerobic Blood Culture Pending Received 11/29/17 19:40 Blood Peripheral Anaerobic Blood Culture Pending Received 11/29/17 19:34 Urine Clean Catch Urine Culture Pending Received Result Diagram: 11/29/17193311/29/171933 Imaging Last Impressions Head CT 11/29/171899 Signed Impressions: Service Date/Time: Wednesday, November 29, 2017 19:49 - CONCLUSION: 1. No acute findings in the brain. 2. Unilateral perisylvian atrophy on the left side suggests possible old infarction. Everton English MD Chest X-Ray 11/29/171899 Signed Impressions: Service Date/Time: Wednesday, November 29, 2017 19:42 - CONCLUSION: Right lower lung consolidation, increased in size when compared to prior chest x-ray 2014. The left lung is clear. Everton English MD Pelvis X-Ray 11/29/17 0000 Signed Impressions: Service Date/Time: Wednesday, November 29, 2017 19:39 - CONCLUSION: The bony pelvic ring is grossly intact. Everton English MD Septic Shock Reassessment Septic shock perfusion: reassessment completed Caprini VTE Risk Assessment Caprini VTE Risk Assessment: Mod/High Risk (score >= 2) VTE Pharm Contraindication: High risk for bleeding Caprini Risk Assessment Model Point Value = 1 Point Value = 2 Point Value = 3 Point Value = 5 Age 41-60 Minor surgery BMI > 25 kg/m2 Swollen legs Varicose veins or History of unexplained or recurrent spontaneous Oral contraceptives or hormone replacement Sepsis (< 1 month) Serious lung disease, including pneumonia (< 1 month) Abnormal pulmonary function Acute myocardial infarction Congestive heart failure (< 1 month) History of inflammatory bowel disease Medical patient at bed rest Age 61-74 Arthroscopic surgery Major open surgery (> 45 min) Laparoscopic surgery (> 45 min) Malignancy Confined to bed (> 72 hours) Immobilizing plaster cast Central venous access Age >= 75 History of VTE Family history of VTE Factor V Leiden Prothrombin [id number] Lupus anticoagulant Anticardiolipin antibodies Elevated serum homocysteine Heparin-induced thrombocytopenia Other congenital or acquired thrombophilia Stroke (< 1 month) Elective arthroplasty Hip, pelvis, or leg fracture Acute spinal cord injury (< 1 month) Prophylaxis Regimen Total Risk Factor Score Risk Level Prophylaxis Regimen 0-1 Low Early ambulation 2 Moderate Order ONE of the following: *Sequential Compression Device (SCD) *Heparin 5000 units SQ BID 3-4 Higher Order ONE of the following medications: *Heparin 5000 units SQ TID *Enoxaparin/Lovenox 40 mg SQ daily (WT < 150 kg, CrCl > 30 mL/min) *Enoxaparin/Lovenox 30 mg SQ daily (WT < 150 kg, CrCl > 10-29 mL/min) *Enoxaparin/Lovenox 30 mg SQ BID (WT < 150 kg, CrCl > 30 mL/min) AND/OR *Sequential Compression Device (SCD) 5 or more Highest Order ONE of the following medications: *Heparin 5000 units SQ TID (Preferred with Epidurals) *Enoxaparin/Lovenox 40 mg SQ daily (WT < 150 kg, CrCl > 30 mL/min) *Enoxaparin/Lovenox 30 mg SQ daily (WT < 150 kg, CrCl > 10-29 mL/min) *Enoxaparin/Lovenox 30 mg SQ BID (WT < 150 kg, CrCl > 30 mL/min) AND *Sequential Compression Device (SCD) Assessment and Plan Assessment and Plan Neuro/Psych: Acute encephalopathy Propofol/fentanyl drips for sedation/analgesia while intubated Goal of RA SS -[address] brain reveals 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 EEG for him is been ordered CV: Shock likely sepsis plus/minus cardiogenic History of hypertension Dyslipidemia Chronic left bundle branch block Severe mitral regurgitation Coronary disease status post stent to the LAD Ischemic cardiomyopathy ejection fraction 15% Cardiac catheterization by Dr. Montes 2014. Stent placed the LAD. RCA 80% stenosis. No drug-eluting stent at that time. Echocardiogram 2014 - ejection fraction 15% . Severe MR. Home medications are carvedilol 6 3.5 mg twice daily and lisinopril 2.5 mg p.o. daily. These been held Holding aspirin 81 mg daily and clopidogrel bisulfate 75 mg p.o. daily light of acute bleeding Holding atorvastatin 40 mg p.o. daily dyslipidemia with shock liver Holding bumetadine 0.5 milligrams daily in light of acute kidney injury. Currently on norepinephrine 25 mg/min, epinephrine 10 mg/min and vasopressin at 0.4 U/min to maintain mean arterial pressure greater than 65 Serial lactates until clear. Currently on sterile water with 3 ampules of sodium bicarbonate at 50 cc an hour Resp: Acute respiratory failure secondary to altered mental status Right lower lobe infiltrate History of tobaccoism PRVC 24/450/0.75/5/100 Ventilator bundle Albuterol/ipratropium aerosols every 6 hours with albuterol aerosols every 2 hours. Dyspnea Spontaneous breathing trials when clinically indicated Chest x-ray revealed right lower lobe infiltrate Highly doubt PE related coagulopathic state. Very poor prognosis GI: Elevated transaminases NGT to LIWS N.p.o. Famotidine for GI prophylaxis Docusate sodium/senna 1 tablet twice daily for bowel regimen : Marcos catheter has been placed for accurate I's and O's in a critically ill patient Endo: Elevated TSH Sliding scale insulin Accu-Cheks every 4 hours to maintain euglycemia with Novulin R medium regimen Check free T3/T4 in a.m. Renal: Acute kidney injury When able check CT abdomen/pelvis plus/minus renal ultrasound if unable Urine electrolytes and eosinophils pending Monitor urine output Accurate I's and O's Avoid nephrotoxic medications Heme: Normocytic anemia Thrombocytopenia Coagulopathy Monitor CBC daily. Follow trend Recheck coags in a.m. after FFP 2 units and vitamin K provided. ID: Severe sepsis Urinary tract infection Right lower lobe pneumonia/community acquired Vancomycin, piperacillin l/tazobactam, azithromycin. Also received ceftriaxone in ED Blood cultures 2, UA, influenza, sputum all pending FEN: Hyperkalemia Hyponatremia Received calcium chloride, bicarbonate/insulin/D50 in ED. Recheck pending Replace electrolytes as clinically indicated MSK: PT evaluate and treat Access -Utilize right femoral CVL day #1 placed 3/5 -Utilize right femoral arterial line day #1 placed 2/5 Prophylaxis -GI -famotidine -DVT -SCD/holding pharmacological prophylaxis in light of acute coagulopathy Critical Care: The total critical care time was 35 minutes. Time to perform other separately billable procedures was not included in the critical care time. Patient currently multisystem organ failure including respiratory failure, end-stage cardiac disease with ejection fraction of 15. Presents with shock liver, acute kidney injury and lactic acidosis. Extremely poor o prognosis. Code Status Full code Discussed Condition With Dr. Nino/ED physician. Family is unavailable and unable to be contacted. Attempted to contact daughter Deanna Denney at [phone] unsuccessful. No number for Chan Geller. Jeniffer Cancino/friend unable to contact.. This was poor last palliative care no. Patient was a DNR 2014. Problem Qualifiers (1) Acute respiratory failure: Qualified Codes: J96.01 - Acute respiratory failure with hypoxia (2) Mitral regurgitation: Qualified Codes: I34.0 - Nonrheumatic mitral (valve) insufficiency (3) Renal failure: Qualified Codes: N17.9 - Acute kidney failure, unspecified (4) Hyperlipidemia: Qualified Codes: E78.00 - Pure hypercholesterolemia, unspecified (5) Anemia: Qualified Codes: D64.9 - Anemia, unspecified Elroy Cui MD Nov 29, 2017 22:32
--- NOTE | 2017-11-29 22:42 | RADRPT ---
EXAM DATE/TIME: 11/29/2017 22:19 [facility] COMPARISON: CHEST SINGLE AP, November 29, 2017, 19:42. INDICATIONS : Evaluate intubation MEDICAL HISTORY : Cardiovascular disease. Hypertension SURGICAL HISTORY : None. ENCOUNTER: Subsequent ACUITY: 1 day PAIN SCORE: Non-responsive. LOCATION: chest FINDINGS: There is moderate patient rotation towards the right. ET tube is in place, approximately 1.4 cm abov e the alan. Prominent consolidation in the right lower lung is similar in size when compared to pr ior when taking into account patient rotation. Heart is enlarged CONCLUSION: ET tube tip is 1.4 cm above the alan. Stable large area of consolidation right lower lobe. Everton English MD on November 29, 2017 at 22:39 Board Certified Radiologist. This report was verified electronically.
[2017-11-29] MEDS ORDERED: INSULIN HUMAN REGULAR 1,000 UNITS/10 ML VIAL IV PUSH ONE (22:45)
[2017-11-29] MEDS: EPINEPHrine (1:1000) INJ 2 MG in DEXTROSE 5% IN WATER INJ 250 ML IV PRN ×2 (22:56)
[2017-11-29] MEDS: PIPERACIL-TAZO 2.25 GM PREMIX 50 ML IV SCH (23:00)
[2017-11-29] MEDS ORDERED: VASOPRESSIN INJ 40 UNITS in DEXTROSE 5% IN WATER 100ML INJ 98 ML IV SCH ×2 (23:00)
[2017-11-29] MEDS ORDERED: SODIUM BICARBONATE 8.4% INJ 50 MEQ/50 ML SYR IV PUSH ONE (23:15)
[2017-11-29 23:16] VITALS: O2SAT 100
--- NOTE | 2017-11-29 23:39 | PD.PROCEDR ---
Central Line Procedure REASON FOR PROCEDURE Central venous access PROCEDURE PERFORMED Central line placement: Right femoral CVL CONSENT Informed consent for procedure was not obtained and considered emergent due to hemodynamic instability. The risks and benefits of the procedure were discussed to include but limited to bleeding, clot formation, infection, and even . ANESTHESIA Local injection of 1% Lidocaine DESCRIPTION OF THE PROCEDURE The patient was placed in supine, mild Trendelenburg position. The area was exposed and cleansed with ChloraPrep, times two. Large sterile drape was used to cover the patient, with the site exposed, under sterile conditions including cap, face mask, sterile gown, and sterile gloves. On single attempt, the introducer needle was inserted with negative pressure in syringe and venous flash was obtained. The guide wire was then advanced without any restriction and the needle was removed. The dilator was used without any complications. Using Seldinger technique the antibiotic coated triple lumen catheter was advanced over the guide wire to a depth of 20 centimeters. The guide wire was removed. All ports were aspirated with dark venous blood return and flushed easily with sterile saline. All ports were capped. Antibiotic disc was placed around central line at puncture site. The central line was secured to the skin with two interrupted 2.0 silk sutures. The area was bandaged with sterile see- through central line bandage. RADIOLOGICAL DATA Ultrasound guidance was used to locate right femoral vein. Doppler/color flow was used to confirm venous flow. COMPLICATIONS: No apparent complications ESTIMATED BLOOD LOSS: Less than 1 cc. Elroy Cui MD Nov 29, 2017 23:39
--- NOTE | 2017-11-29 23:40 | PD.PROCEDR ---
Procedure Note Procedure DATE: 11/29/2017 PROCEDURE: Right femoral arterial catheter placement INDICATION: Hemodynamic instability DETAILS OF PROCEDURE The patient was placed in supine position. The skin was cleansed with Chloraprep. Additional barrier precautions included large sterile drape, sterile gloves, sterile gown, face mask, and hat. 1% lidocaine was used for local anesthesia. Under direct ultrasound guidance and on the initial attempt, the artery was accessed with an introducer needle. The guide wire was advanced. Using Seldinger technique 20 gauge arterial catheter was placed. The guide wire was removed. The catheter was connected to a transducer line and flushed with saline. The video monitor displayed normal arterial wave forms. The catheter was secured with 2-0 silk. A sterile dressing with antibiotic disc was applied. ESTIMATED BLOOD LOSS: minimal COMPLICATIONS: None Elroy Cui MD Nov 29, 2017 23:40
--- NOTE | 2017-11-29 23:41 | PD.PROCEDR ---
Procedure Note Procedure DATE: 11/29/2017 PROCEDURE: Orotracheal intubation INDICATION: CODE BLUE DETAILS OF PROCEDURE The patient was placed in optimal position and preoxygenated with 100% FiO2 via bag valve mask. At the start oxygen saturation was []%. The patient was administered no medications. I entered the oropharynx with a size 3 Martha laryngoscope blade and obtained a grade 2 view of the airway. On single attempt a size 8.0 cuffed endotracheal tube was passed through the vocal cords. Correct tube location was confirmed with end tidal CO2 detector and by auscultating over bilateral lung kumar. The endotracheal tube was secured with adhesive tape at a depth of 23 cm at the lips. The patient was connected to the ventilator. The patient tolerated the procedure well without any apparent complications. Oxygen saturations were maintained greater than 95% all times. STAT chest x-ray pending at time of dictation. Elroy Cui MD Nov 29, 2017 23:41
[2017-11-29 23:45] VITALS: BP 96/56; PULSE 84; RESP 24; O2SAT 95
[2017-11-30] VITALS (8 sets, daily range): BP systolic 40–138; BP diastolic 30–72; PULSE 88–106; RESP 17–24; TEMP 97.3–97.8; O2SAT 70–98
[2017-11-30 00:05] LABS: CREATININE, RANDOM URINE 154.4 MG/DL
[2017-11-30] MEDS: NOREPINEPHRINE INJ 4 MG in SODIUM CHLOR 0.9% 250 ML INJ 246 ML IV PRN ×3 (00:21→09:23)
[2017-11-30] MEDS ORDERED: fentaNYL DRIP 250 ML ONE (00:26)
[2017-11-30] MEDS: RESP: ALBUTEROL 2.5 MG/IPRATROPIUM 0.5 MG NEB (SCH) INH ×4 (01:08→12:00)
[2017-11-30] MEDS ORDERED: VANCOMYCIN INJ 1,000 MG in SODIUM CHLOR 0.9% 250 ML INJ 250 ML IV ONE (01:15)
[2017-11-30] MEDS ORDERED: DEXTROSE 50% IN WATER 50 ML VIAL(D50) IV PUSH PRN (02:00)
[2017-11-30] MEDS ORDERED: GLUCAGON 1 MG/ML VIAL OTHER PRN (02:00)
[2017-11-30] MEDS ORDERED: DOBUTamine INJ 1,000 MG in DEXTROSE 5% IN WATER INJ 170 ML IV PRN ×4 (02:15→10:15)
[2017-11-30 02:28] LABS: AUTOMATED NEUTROPHIL # 5.4 TH/MM3 (1.8-7.7); BASOPHIL % 0.1 % (0.0-2.0); EOSINOPHIL % 0.1 % (0.0-4.0); HEMATOCRIT 29.3 % (35.0-46.0); HEMOGLOBIN 9.2 GM/DL (11.6-15.3); LYMPHOCYTE # 0.4 TH/MM3 (1.0-4.8); MEAN CELL VOLUME 84.7 FL (80.0-100.0); MEAN CORPUSCULAR HEMOGLOBIN 26.7 PG (27.0-34.0); MEAN CORPUSCULAR HGB CONC 31.5 % (32.0-36.0); MEAN PLATELET VOLUME 9.3 FL (7.0-11.0); MONO % 6.1 % (0.0-8.0); MONOCYTE # 0.4 TH/MM3 (0-0.9); NEUT % 87.7 % (16.0-70.0); PLATELET COUNT 102 TH/MM3 (150-450); RED BLOOD COUNT 3.45 MIL/MM3 (4.00-5.30); RED CELL DISTRIBUTION WIDTH 22.6 % (11.6-17.2); WHITE BLOOD COUNT 6.2 TH/MM3 (4.0-11.0)
[2017-11-30 02:48] LABS: ALBUMIN 2.2 GM/DL (3.4-5.0); BICARBONATE 19.6 MEQ/L (21.0-32.0); CALCIUM 7.2 MG/DL (8.5-10.1); CALCIUM-PROTEIN CORRECTED 8.5 MG/DL (8.5-10.1); CREATININE 3.6 MG/DL (0.50-1.00); MAGNESIUM 2.3 MG/DL (1.5-2.5); PHOSPHORUS 6.6 MG/DL (2.5-4.9); TOTAL BILIRUBIN ADULT 3.5 MG/DL (0.2-1.0); TOTAL PROTEIN 4.8 GM/DL (6.4-8.2); TROPONIN I 0.27 NG/ML (0.02-0.05)
[2017-11-30 02:49] LABS: FIBRINOGEN LESS THAN 50 mg/dL (227-377)
[2017-11-30 03:47] LABS: ACANTHOCYTES 2+ (NORMAL)
[2017-11-30] MEDS: INSULIN NovoLIN REGULAR SUPPLEMENTAL SCALE SQ SCH ×3 (04:00→12:00)
[2017-11-30] MEDS ORDERED: CHLORHEXIDINE GLUCONATE 2 % 1 PACK (2 CLOTHS) TOP SCH (04:00)
--- NOTE | 2017-11-30 06:09 | PD.PROCEDR ---
Procedure Note Procedure CODE BLUE Walking into room patient in PEA arrest. Ambu bag by LAURA. Pads were placed were placed underneath the chest compressions initiated. Received 1 mg of epinephrine. Pulse check noted to be in V. tach. Defibrillator 200 J. Received sodium bicarbonate, calcium chloride 1 mg epinephrine. Return of spontaneous circulation after intubation. Around 5 minutes coded time. Central line and arterial line placed postcode. Elroy Cui MD Nov 30, 2017 06:09
[2017-11-30] MEDS: PIPERACIL-TAZO 2.25 GM PREMIX 50 ML IV SCH ×2 (06:53→15:00)
[2017-11-30] MEDS: SODIUM BICARBONATE 8.4% INJ 150 MEQ in WATER STERILE FOR INJ 850 ML IV SCH ×2 (06:57→09:22)
[2017-11-30] MEDS ORDERED: CHLORHEXIDINE 0.12% (ORAL KIT) 15 ML CUP MT SCH (08:00)
[2017-11-30] MEDS ORDERED: CLOPIDOGREL 75 MG TAB PO SCH (09:00)
[2017-11-30] MEDS ORDERED: DOCUSATE SODIUM 50 MG/SENNA 8.6 MG TAB PO SCH (09:00)
[2017-11-30] MEDS ORDERED: ASPIRIN EC 81 MG TABEC PO SCH (09:00)
[2017-11-30] MEDS ORDERED: FAMOTIDINE 20 MG/2 ML VIAL IV PUSH SCH (09:00)
[2017-11-30] MEDS ORDERED: HEPARIN SODIUM - SQ 10,000 UNITS/ML VIAL SQ SCH (09:00)
[2017-11-30] MEDS ORDERED: SODIUM CHLORIDE 0.9% FLUSH 10 ML FLUSH IV FLUSH SCH (09:00)
--- NOTE | 2017-11-30 09:20 | RADRPT ---
EXAM DATE/TIME: 11/30/2017 08:10 [facility] COMPARISON: No previous studies available for comparison. INDICATIONS : Increased BUN/Creatinine. MEDICAL HISTORY : Hypertension. Neuropathy. Heart disease. SURGICAL HISTORY : Coronary artery stent. ENCOUNTER: Initial ACUITY: 1 day PAIN SCORE: Nonresponsive. LOCATION: Bilateral flank MEASUREMENTS: RIGHT KIDNEY: 11.4 x 5.7 x 4.4 cm LEFT KIDNEY: 8.9 x 4.1 x 4.4 cm FINDINGS: RIGHT KIDNEY: Renal cortex is normal in thickness and echotexture. No hydronephrosis, stone, or mass. LEFT KIDNEY: Renal cortex is normal in thickness and echotexture. No hydronephrosis, stone, or mass. BLADDER: Completely decompressed. There is trace ascites in the abdomen. CONCLUSION: 1. Asymmetrical renal size with slightly smaller left kidney. 2. No evidence for obstructive uropathy. 3. Trace ascites. Neftaly Metzger MD on November 30, 2017 at 9:17 Board Certified Radiologist. This report was verified electronically.
[2017-11-30] MEDS: EPINEPHrine (1:1000) INJ 2 MG in DEXTROSE 5% IN WATER INJ 250 ML IV PRN ×2 (09:22)
[2017-11-30] MEDS: ARTIFICIAL TEARS OPTH SOLN 15 ML BTL EACH EYE SCH ×2 (09:33→12:42)
[2017-11-30] MEDS ORDERED: NOREPINEPHRINE INJ 4 MG in SODIUM CHLOR 0.9% 250 ML INJ 246 ML IV PRN (10:15)
[2017-11-30 11:14] LABS: CHOLESTEROL/ HDL RATIO 5.13 RATIO; FREE T3 1.26 PG/ML (2.18-3.98); FREE T4 0.91 NG/DL (0.76-1.46); HDL CHOLESTEROL 11.3 MG/DL (40.0-60.0); TROPONIN I 0.45 NG/ML (0.02-0.05)
[2017-11-30 13:56] LABS: INTERNATIONAL NORMALIZED RATIO 2.3 RATIO; PROTHROMBIN TIME - PATIENT 23.4 SEC (9.8-11.6)
--- NOTE | 2017-11-30 14:46 | PD.CONS ---
Consult Service Palliative Care . Consult Requested By Dr. Cui . Primary Care Physician Amanda Livingston MD . Reason for Consultation a. To assist with evaluation and management of symptoms including: dyspnea, chest pain. b. To assist medical decision maker(s) with: better understanding of current medical conditions; weighing benefits/burdens of medical treatment options; making medical treatment decisions. . HPI History of Present Illness Ms. Geller is a 77 year old female with past medical history of ischemic cardiomyopathy (EF 15%), coronary artery disease status post drug-eluting stent LAD, hypertension, dyslipidemia. Patient had a cardiac catheterization 2014 with stent placement LAD and R CA stenosis is unknown if patient had follow-up for this. Patient presented to [facility] on 11/29/17 as a Doll Act. Friend had requested a well check found to be quite disheveled. Initial ER evaluation revealed: * WBC 9.2, hgb 11.2, hct 34.8, platelets 146 * potassium 5.9, sodium 131, creatinine of 3.8, BUN 118. * T Bili 4.6, AST 460, ALT 559, Alk phos 196, ammonia less than 10 * Lactic acid 2.5 * TSH 4.140 * BNP 3224 * Total protein 6.3, albumin 3.0 * CT brain - revealed possible old left-sided CVA * Chest x-ray - revealed possible right lower lobe pneumonia * Urinalysis + trace leukocyte esterase, bacteria. In the emergency department, patient went into PEA arrest, CODE BLUE called. CPR started including 2 mg epinephrine, 1 ampule sodium bicarbonate and 1 g of calcium chloride. Patient was emergently intubated and placed on mech vent. Coalesced approximate 5 minutes. Patient went into V. tach, required 200 J defibrillation. Postresuscitation EKG revealed sinus tachycardia with PVCs, left bundle branch block, left axis deviation. Patient was admitted to ICU. Overall prognosis poor in this frail, elderly, critically ill patient in multisystem organ failure. Medical team spoke with son is driving from [place] anticipated to arrive on 12/01/17. Son requested keeping patient comfortable on vent until he arrives. Palliative care was consulted to assist with further clarification of goals. . Review of Systems ROS Limitations: Intubated, Unresponsive (on mech vent. ROS per nursing staff and EMR review, pt unresponsive. ) Respiratory: COMPLAINS OF: Shortness of breath Cardiovascular: COMPLAINS OF: Chest pain, Dyspnea on Exertion Hematologic/Lymphatics: COMPLAINS OF: Bruising Past Family Social History Coded Allergies: No Known Allergies (Verified Allergy, Unknown, 10/25/17) Past Medical History Ischemic cardiomyopathy ejection fraction 15% Severe mitral regurgitation Hypertension Dyslipidemia Coronary artery disease Cataracts History of tobaccoism DAP . Past Surgical History Right eye cataract Bilateral iridectomy Cardiac catheterization 2014 . Reported Medications Reported Meds & Active Scripts Active Ventolin Hfa 18 GM Inh (Albuterol Sulfate) 90 Mcg/Act Aer 2 Puff INH Q4-6H PRN Bumetanide 0.5 Mg Tab 0.5 Mg PO DAILY Lisinopril 2.5 Mg Tab 2.5 Mg PO DAILY Reported Aspirin EC (Aspirin) 81 Mg Tabdr 81 Mg PO DAILY Carvedilol 3.125 Mg Tab 3.125 Mg PO BID Atorvastatin (Atorvastatin Calcium) 40 Mg Tab 40 Mg PO HS Clopidogrel (Clopidogrel Bisulfate) 75 Mg Tab 75 Mg PO DAILY Current Medications Medications (Trade) Dose Ordered Sig/Kulwinder Route Start Time Stop Time Status Last Admin (NS Flush) 2 ml UNSCH PRN IV FLUSH 11/29/17 22:15 (NS Flush) 2 ml BID IV FLUSH 11/30/17 09:00 11/30/17 09:33 (Pepcid Inj) 10 mg Q12HR IV PUSH 11/30/17 09:00 11/30/17 09:46 (Tears Naturale Opth Soln) 1 drop TID EACH EYE 11/30/17 09:00 11/30/17 12:42 (Zofran Inj) 4 mg Q6H PRN IV PUSH 11/29/17 22:15 (Duoneb Neb) 1 ampule Q4HR NEB INH 11/30/17 00:00 11/30/17 12:00 (Albuterol Neb) 2.5 mg Q2HR NEB PRN INH 11/29/17 22:15 Miscellaneous Information 1 Q361D XX 11/29/17 22:15 (Chlorhexidine 2% Cloth) 3 pack Taper DAILY@04 TOP 11/30/17 04:00 11/26/18 03:59 (Chlorhexidine 2% Cloth) 3 pack UNSCH PRN TOP 11/29/17 22:15 (Maile-Colace) 1 tab BID PO 11/30/17 09:00 (Milk Of Magnesia Liq) 30 ml Q12H PRN PO 11/29/17 22:15 (Senokot) 17.2 mg Q12H PRN PO 11/29/17 22:15 (Dulcolax Supp) 10 mg DAILY PRN RECTAL 11/29/17 22:15 (Lactulose Liq) 30 ml DAILY PRN PO 11/29/17 22:15 (Peridex 0.12% Liq) 15 ml BID@08,20 MT 11/30/17 08:00 11/30/17 08:25 Propofol 100 ml @ 1.62 mls/hr TITRATE PRN IV 11/29/17 22:15 Fentanyl Citrate 250 ml @ 5 mls/hr TITRATE PRN IV 11/29/17 22:15 11/30/17 00:33 (Brethine Inj) 1 mg UNSCH PRN SQ 11/29/17 22:30 Piperacillin Sod/ Tazobactam Sod 50 ml @ 100 mls/hr Q8H IV 11/29/17 23:00 11/30/17 06:53 (Ecotrin Ec) 81 mg DAILY PO 11/30/17 09:00 (Plavix) 75 mg DAILY PO 11/30/17 09:00 Sodium Bicarbonate 150 meq/Sterile Water 1,000 ml @ 50 mls/hr Q20H IV 11/29/17 23:15 11/30/17 09:22 (D50w (Vial) Inj) 50 ml UNSCH PRN IV PUSH 11/30/17 02:00 (Glucagon Inj) 1 mg UNSCH PRN OTHER 11/30/17 02:00 (NovoLIN R SUPPLEMENTAL SCALE) 1 Q4HR SQ 11/30/17 04:00 11/30/17 08:00 (Heparin Inj) 5,000 units Q12HR SQ 11/30/17 09:00 Dobutamine HCl 1000 mg/Dextrose 250 ml @ 2.02 mls/hr TITRATE PRN IV 11/30/17 10:15 Norepinephrine Bitartrate 4 mg/ Sodium Chloride 250 ml @ 2 mls/hr TITRATE PRN IV 11/30/17 10:15 Family History Maternal history is unknown. Father had some abdominal problems requiring a colostomy. Both parents and grandparents lived to the 90s. . Substance Use Per prior EMR review; Tobacco: 1 PPD 40 years, quit 2 years ago. Alcohol: None Prescription med abuse: None Illicits: None Psychosocial History Per prior Pall care notes: "Patient lives locally, independently able to care for self and her dog a miniature dachshund. Family assists with providing groceries etc., patient primarily eats pre-prepared processed items that she can heat up and prepare on her own. Patient is originally from [facility]. Moved to [place] in 2003 with her for snf. He about one year after moving here. 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 Has 1 son, adult healthy now. Also supported by a close friend who lives near her and she looks too "like a daughter ", Deanna remains close to patient and son." . Spiritual/Cultural Factors Patient indicates zoroastrian has not been an important part of her life, no local affiliation, does not desire management retail intern visits. . Living Will: Never completed Health Care Surrogate: Never completed Durable Power of Parts Sales Advisor: Never completed Health Care Surrogate(s): Patient is NOT capacitated to make her own health care decisions, will not regain capacity. No known written advanced directives, according to [place] statutes, health care proxy decision making falls to her only son, Chan Geller. . Documented care wishes: No known written advanced directives. . Today's verbally stated goals: Patient is NOT capacitated to make her own health care decisions, will not regain capacity. . Family/friends goals: [facility] family arrives. . Ethical and Legal Issues Patient is NOT capacitated to make her own health care decisions, will not regain capacity. No known written advanced directives, according to [place] statutes, health care proxy decision making falls to her only son, Chan Geller. . Physical Exam Vital Signs Date Time Temp Pulse Resp B/P (MAP) Pulse Ox O2 Delivery O2 Flow Rate FiO2 11/30/17 12:00 97.4 106 24 40/30 (33) 70 11/30/17 09:23 88 137/72 11/30/17 09:22 107 147/63 11/30/17 08:45 97.3 92 24 127/64 72 11/30/17 08:33 98 100 11/30/17 08:30 97.6 94 17 138/55 71 11/30/17 08:00 98 11/30/17 08:00 97.8 88 24 137/72 (93) 70 11/30/17 07:00 70 Mechanical Ventilator 100 11/30/17 03:41 93 80 11/30/17 03:00 131 110/65 11/30/17 02:37 97 80 11/30/17 02:24 11/30/17 00:55 97 100 11/30/17 00:21 41 135/55 11/29/17 23:45 84 24 95 Ventilator 100 96/56 (69) 11/29/17 23:16 100 100 11/29/17 23:06 62 56/37 11/29/17 22:56 109 65/41 11/29/17 22:16 100 11/29/17 22:15 109 18 124/60 (81) 100 11/29/17 22:15 100 100 11/29/17 22:10 87 11/29/17 20:04 120 18 Nasal Cannula 2.00 11/29/17 20:04 Nasal Cannula 2.00 11/29/17 19:30 97.7 110 18 102/89 (93) 2.00 11/29/17 18:51 80 17 11/30/17 12/01/17 19:00 07:00 Intake Total 208 ml Balance 208 ml Cryoprecipitate 208 ml Exam CONSTITUTIONAL/GENERAL: This is an elderly, frail, critically ill patient. TUBES/LINES/DRAINS:ETT, OG, right femoral line CL and A Line, PIV bilateral hands, catheter, SCDs. SKIN: No jaundice, rashes, or lesions. Ecchymoses on upper extremities. No wounds seen anteriorly. Skin temperature appropriate. Not diaphoretic. HEAD: Atraumatic. Normocephalic. EYES: eyes closed. ENT: Unable to assess hearing. Nose without bleeding or purulent drainage. Throat difficult to visualize due to tubes. NECK: Trachea midline. CARDIOVASCULAR: irregular, tachycardic. RESPIRATORY/CHEST: On mech vent, course breath sounds. GASTROINTESTINAL: Abdomen soft, distended. + BS. Liquid foul smelling stool noted. GENITOURINARY: Without palpable bladder distension. Marcos catheter in place. MUSCULOSKELETAL: Extremities without clubbing, cyanosis, or edema. No mottling or clubbing. LYMPHATICS: No palpable cervical or supraclavicular adenopathy. NEUROLOGICAL: Unresponsive. PSYCHIATRIC: Unresponsive . Diagnostic Tests Laboratory Laboratory Tests Test 3/5/18 19:34 11/29/17 23:00 11/29/17 23:37 11/30/17 01:50 White Blood Count 9.2 TH/MM3 (4.0-11.0) 6.2 TH/MM3 (4.0-11.0) Red Blood Count 4.18 MIL/MM3 (4.00-5.30) 3.45 MIL/MM3 (4.00-5.30) Hemoglobin 11.2 GM/DL (11.6-15.3) 9.2 GM/DL (11.6-15.3) Hematocrit 34.8 % (35.0-46.0) 29.3 % (35.0-46.0) Mean Corpuscular Volume 83.4 FL (80.0-100.0) 84.7 FL (80.0-100.0) Mean Corpuscular Hemoglobin 26.7 PG (27.0-34.0) 26.7 PG (27.0-34.0) Mean Corpuscular Hemoglobin Concent 32.0 % (32.0-36.0) 31.5 % (32.0-36.0) Red Cell Distribution Width 22.1 % (11.6-17.2) 22.6 % (11.6-17.2) Platelet Count 146 TH/MM3 (150-450) 102 TH/MM3 (150-450) Mean Platelet Volume 9.6 FL (7.0-11.0) 9.3 FL (7.0-11.0) Neutrophils (%) (Auto) 85.0 % (16.0-70.0) 87.7 % (16.0-70.0) Lymphocytes (%) (Auto) 6.6 % (9.0-44.0) 6.0 % (9.0-44.0) Monocytes (%) (Auto) 8.3 % (0.0-8.0) 6.1 % (0.0-8.0) Eosinophils (%) (Auto) 0.0 % (0.0-4.0) 0.1 % (0.0-4.0) Basophils (%) (Auto) 0.1 % (0.0-2.0) 0.1 % (0.0-2.0) Neutrophils # (Auto) 7.8 TH/MM3 (1.8-7.7) 5.4 TH/MM3 (1.8-7.7) Lymphocytes # (Auto) 0.6 TH/MM3 (1.0-4.8) 0.4 TH/MM3 (1.0-4.8) Monocytes # (Auto) 0.8 TH/MM3 (0-0.9) 0.4 TH/MM3 (0-0.9) Eosinophils # (Auto) 0.0 TH/MM3 (0-0.4) 0.0 TH/MM3 (0-0.4) Basophils # (Auto) 0.0 TH/MM3 (0-0.2) 0.0 TH/MM3 (0-0.2) CBC Comment AUTO DIFF AUTO DIFF Differential Comment AUTO DIFF CONFIRMED AUTO DIFF CONFIRMED Platelet Estimate LOW (NORMAL) LOW (NORMAL) Platelet Morphology Comment ENLARGED (NORMAL) NORMAL (NORMAL) Tear Drop Cells 1+ (NORMAL) Ovalocytes 1+ (NORMAL) Sunny Cells 1+ (NORMAL) Keratocytes 1+ (NORMAL) Prothrombin Time 21.1 SEC (9.8-11.6) 30.0 SEC (9.8-11.6) Prothromb Time International Ratio 2.1 RATIO 3.0 RATIO Activated Partial Thromboplast Time 38.0 SEC (24.3-30.1) 49.9 SEC (24.3-30.1) Urine Color DARK-BROWN (YELLW/STRAW) Urine Turbidity CLOUDY (CLEAR) Urine pH 5.5 (5.0-8.5) Urine Specific [place] 1.018 (1.002-1.035) Urine Protein 100 mg/dL (NEG-TRACE) Urine Glucose (UA) NEG mg/dL (NEG) Urine Ketones NEG mg/dL (NEG) Urine Occult Blood SMALL (NEG) Urine Nitrite NEG (NEG) Urine Bilirubin SMALL (NEG) Urine Urobilinogen 2.0 MG/DL (LESS THAN Urine Leukocyte Esterase TRACE (NEG) Urine RBC 9 /hpf (0-3) Urine WBC 17 /hpf (0-5) Urine Squamous Epithelial Cells 4 /hpf (0-5) Urine Bacteria MOD /hpf (NONE) Urine Hyaline Casts INNUM /lpf (RARE) Urine Granular Casts 12 /lpf (NONE) Urine Mucus MANY /lpf (OCC) Microscopic Urinalysis Comment CULTURE INDICATED Urine Eosinophils NONE SEEN /HPF (NONE SEEN) Urine Random Creatinine 154.4 MG/DL Urine Random Sodium 8 MEQ/L Blood Urea Nitrogen 118 MG/DL (7-18) 103 MG/DL (7-18) Creatinine 3.80 MG/DL (0.50-1.00) 3.60 MG/DL (0.50-1.00) Random Glucose 107 MG/DL (74-106) 199 MG/DL (74-106) Total Protein 6.3 GM/DL (6.4-8.2) 4.8 GM/DL (6.4-8.2) Albumin 3.0 GM/DL (3.4-5.0) 2.2 GM/DL (3.4-5.0) Calcium Level 8.1 MG/DL (8.5-10.1) 7.2 MG/DL (8.5-10.1) Alkaline Phosphatase 196 U/L (45-117) 161 U/L (45-117) Aspartate Amino Transf (AST/SGOT) 460 U/L (15-37) 389 U/L (15-37) Alanine Aminotransferase (ALT/SGPT) 559 U/L (10-53) 436 U/L (10-53) Total Bilirubin 4.6 MG/DL (0.2-1.0) 3.5 MG/DL (0.2-1.0) Sodium Level 131 MEQ/L (136-145) 139 MEQ/L (136-145) Potassium Level 5.9 MEQ/L (3.5-5.1) 4.9 MEQ/L (3.5-5.1) Chloride Level 95 MEQ/L (98-107) 104 MEQ/L (98-107) Carbon Dioxide Level 22.4 MEQ/L (21.0-32.0) 19.6 MEQ/L (21.0-32.0) Anion Gap 14 MEQ/L (5-15) 15 MEQ/L (5-15) Estimat Glomerular Filtration Rate 12 ML/MIN (>89) 12 ML/MIN (>89) Lactic Acid Level 2.5 mmol/L (0.4-2.0) 8.9 mmol/L (0.4-2.0) 9.7 mmol/L (0.4-2.0) Ammonia LESS THAN 10 MCMOL/L Total Creatine Kinase 405 U/L (26-192) Creatine Kinase MB 13.9 NG/ML (0.5-3.6) Creatine Kinase MB % 3.4 % (0.0-4.0) Troponin I 0.14 NG/ML (0.02-0.05) 0.27 NG/ML (0.02-0.05) Thyroid Stimulating Hormone 3rd Gen 4.140 uIU/ML (0.358-3.740) Urine Opiates Screen NEG (NEG) Urine Barbiturates Screen NEG (NEG) Urine Amphetamines Screen NEG (NEG) Urine Benzodiazepines Screen NEG (NEG) Urine Cocaine Screen NEG (NEG) Urine Cannabinoids Screen NEG (NEG) Ethyl Alcohol Level LESS THAN 3 MG/DL (0-5) Blood Gas Puncture Site ART LINE Blood Gas Patient Temperature 98.6 Blood Gas HCO3 12 mmol/L (22-26) Blood Gas Base Excess -15.1 mmol/L (-2-2) Blood Gas Oxygen Saturation 97 % (90-100) Arterial Blood pH 7.12 (7.380-7.420) Arterial Blood Partial Pressure CO2 40 mmHg (38-42) Arterial Blood Partial Pressure O2 177 mmHG (61-120) Arterial Blood Oxygen Content 12.6 Vol % (12.0-20.0) Arterial Blood Carboxyhemoglobin 1.2 % (0-4) Arterial Blood Methemoglobin 0.4 % (0-2) Blood Gas Hemoglobin 9.0 G/DL (12.0-16.0) Oxygen Delivery Device VENTILATOR Blood [facility] Inspired Oxygen 100 % B-Type Natriuretic Peptide 3224 PG/ML (0-100) Salicylates Level LESS THAN 1.7 MG/DL Acetaminophen Level 2.3 MCG/ML (10.0-30.0) Acanthocytes 2+ (NORMAL) Fibrinogen LESS THAN 50 mg/dL Phosphorus Level 6.6 MG/DL (2.5-4.9) Magnesium Level 2.3 MG/DL (1.5-2.5) Protein Corrected Calcium 8.5 MG/DL (8.5-10.1) Test 11/30/17 01:52 11/30/17 02:26 11/30/17 05:23 11/30/17 10:20 Blood Gas Puncture Site IV ART LINE ART LINE Blood Gas Patient Temperature 98.6 98.6 98.6 Venous Blood pH 7.17 (7.360-7.400) Venous Blood Partial Pressure CO2 49 mmHg (44-48) Venous Blood Partial Pressure O2 40 mmHg (35-40) Venous Blood HCO3 17 mmol/L (22-26) Venous Blood Oxygen Saturation 53 % (70-76) Venous Blood Oxygen Content 7.5 Vol % (9.0-17.0) Venous Blood Base Excess -10.0 mmol/L (-2-2) Oxygen Delivery Device VENT VENT VENT Blood Gas Ventilator Setting SEE COMMENTS SEE COMMENTS SEE COMMENTS Blood Gas Inspired Oxygen 90 % 90 % 80 % Blood Gas HCO3 13 mmol/L (22-26) 20 mmol/L (22-26) Blood Gas Base Excess -13.2 mmol/L (-2-2) -3.1 mmol/L (-2-2) Blood Gas Oxygen Saturation 97 % (90-100) 98 % (90-100) Arterial Blood pH 7.23 (7.380-7.420) 7.44 (7.380-7.420) Arterial Blood Partial Pressure CO2 32 mmHg (38-42) 30 mmHg (38-42) Arterial Blood Partial Pressure O2 280 mmHg (61-120) 247 mmHg (61-120) Arterial Blood Oxygen Content 12.3 Vol % (12.0-20.0) 12.6 Vol % (12.0-20.0) Arterial Blood Carboxyhemoglobin 1.4 % (0-4) 1.8 % (0-4) Arterial Blood Methemoglobin 0.9 % (0-2) 0.8 % (0-2) Blood Gas Hemoglobin 8.5 G/DL (12.0-16.0) 8.8 G/DL (12.0-16.0) Total Creatine Kinase 442 U/L (26-192) Creatine Kinase MB 9.6 NG/ML (0.5-3.6) Creatine Kinase MB % 2.2 % (0.0-4.0) Troponin I 0.45 NG/ML (0.02-0.05) Triglycerides Level 129 MG/DL (42-150) Cholesterol Level 58 MG/DL (120-200) LDL Cholesterol 21 MG/DL (0-99) HDL Cholesterol 11.3 MG/DL (40.0-60.0) Cholesterol/HDL Ratio 5.13 RATIO Amylase Level 97 U/L (25-115) Lipase 244 U/L (73-393) Free Thyroxine 0.91 NG/DL (0.76-1.46) Free Triiodothyronine (T3) pg/dL 1.26 PG/ML (2.18-3.98) Test 11/30/17 11:55 Result Diagram: 11/30/17 0150 11/30/17 0150 Microbiology Microbiology Date/Time Source Procedure Growth Status 11/29/17 19:40 Blood Peripheral Aerobic Blood Culture - Preliminary NO GROWTH IN 1 DAY Resulted 11/29/17 19:40 Blood Peripheral Anaerobic Blood Culture - Preliminary NO GROWTH IN 1 DAY Resulted 11/29/17 19:30 Blood Peripheral Aerobic Blood Culture - Preliminary NO GROWTH IN 1 DAY Resulted 11/29/17 19:30 Blood Peripheral Anaerobic Blood Culture - Preliminary NO GROWTH IN 1 DAY Resulted 11/30/17 02:25 Sputum Endotracheal Gram Stain - Final Resulted 11/30/17 02:25 Sputum Endotracheal Sputum Culture Pending Resulted 11/29/17 19:34 Urine Clean Catch Urine Culture Pending Received Imaging Last Impressions Renal Ultrasound 11/30/17 0000 Signed Impressions: Service Date/Time: Thursday, November 30, 2017 08:10 - CONCLUSION: 1. Asymmetrical renal size with slightly smaller left kidney. 2. No evidence for obstructive uropathy. 3. Trace ascites. Neftaly Metzger MD Head CT [id number]/29/171899 Signed Impressions: Service Date/Time: Wednesday, November 29, 2017 19:49 - CONCLUSION: 1. No acute findings in the brain. 2. Unilateral perisylvian atrophy on the left side suggests possible old infarction. Everton English MD Chest X-Ray [id number]/29/171899 Signed Impressions: Service Date/Time: Wednesday, November 29, 2017 19:42 - CONCLUSION: Right lower lung consolidation, increased in size when compared to prior chest x-ray 2014. The left lung is clear. Everton English MD Pelvis X-Ray 11/29/17 0000 Signed Impressions: Service Date/Time: Wednesday, November 29, 2017 19:39 - CONCLUSION: The bony pelvic ring is grossly intact. Everton English MD . Procedures * 11/29/17 - PEA arrest, right femoral CL and A line placement . Patient/Family Conference Present at Family Conference: Family driving from [place], expected to arrive 12/01. Will meet when they arrive. Assessment and Plan Disease Oriented Problem List: (1) Septic shock (2) Acute systolic CHF (congestive heart failure) (3) Elevated troponin (4) Elevated TSH (5) Thrombocytopenia (6) Acute respiratory failure (7) Cardiopulmonary arrest with successful resuscitation (8) Renal failure (9) Hyperkalemia (10) CHF (congestive heart failure) (11) Lactic acidosis (12) Anemia (13) Hyperlipidemia (14) Hyponatremia Symptom Scale: (1) Pain 0-10 Scale: Unable to quantify Comment: on Fentanyl drip (2) Dyspnea 0-10 Scale: Unable to quantify Pertinent Non-Medical Issues Psychosocial: Patient lives locally, was living alone. Supported by son who lives in [place]. Spiritual: No particular alevism affiliation, patient indicates zoroastrian is not important part of her life. Does not desire management retail intern visits at this time. Legal:Patient is NOT capacitated to make her own health care decisions, will not regain capacity. No known written advanced directives, according to [place] statutes, health care proxy decision making falls to her only son, Chan Geller. Ethical issues impacting care: No known concerns. . Important Contacts * Chan Geller, son: [phone] * Deanna Denney (friend) [phone] . Prognosis Poor prognosis. . Code Status: No Code Plan * Patient is NOT capacitated to make her own health care decisions, will not regain capacity. No known written advanced directives, according to [place] [facility], health care proxy decision making falls to her only son, Chan Geller. * NO CODE * Son expected to arrive from [place] 12/01/17. Will meet when he arrives. He desires comfort on vent until he arrives per nursing staff. * Symptoms: = Pain: due to weakness, debility, CPR, etc. On Fentanyl drip. = Dyspnea: on mech vent. * Palliative care will continue to follow during hospital course as condition evolves, to assist patient/decision-maker with understanding of medical conditions, weighing benefits/burdens of treatment options, for clarification of goals of treatment. Additionally will assist with any symptoms of palliative concern. . Thank you for the opportunity to participate in the care of Ms. Geller. Attestation To help prompt me to consider important information that might be impacting today's encounter and assessment, information from prior notes written by myself or my colleagues may have been "brought forward" into today's note. My signature on this note, however, is an attestation that I personally performed the exam, history, and/or decision-making noted today, and, unless otherwise indicated, the interactions with patient, family, and staff as well as the review of records all occurred today. I also attest that the listed assessment and stated plan reflect my best clinical judgment today based on the combination of historical information, prior notes, and today's exam/ interactions. When time spent is documented, it refers only to time spent today by the signer, or if indicated, combined time spent today by collaborating physician/nurse practitioner. Patricia Vigil Nov 30, 2017 14:46
--- NOTE | 2017-11-30 16:07 | ECHRPT ---
Indication: HEART FAILURE CONCLUSIONS Moderately dilated left ventricle. The left ventricular systolic function is severely reduced with an estimated ejection fraction less than 20%. The right ventricle is moderately dilated. The right ventricular systoilc function is moderately decreased. Etxiqcsw-xj-xzlhre mitral valve regurgitation. There is moderate tricuspid regurgitation. BP: 115 / 65 HR: 91 Rhythm: Sinus MEASUREMENTS (Male / Female) Normal Values Technical Quality:Technically difficult study 2D ECHO LV Diastolic Diameter PLAX 7.2 cm 4.2 - 5.9 / 3.9 - 5.3 cm LV Systolic Diameter PLAX 6.5 cm IVS Diastolic Thickness 0.7 cm 0.6 - 1.0 / 0.6 - 0.9 cm LVPW Diastolic Thickness 0.7 cm 0.6 - 1.0 / 0.6 - 0.9 cm LV Relative Wall Thickness 0.2 LVOT Diameter 1.7 cm Aortic Root Diameter 3.1 cm LA Systolic Diameter LX 5.0 cm 3.0 - 4.0 / 2.7 - 3.8 cm M-MODE AV Cusp Separation MM 1.2 cm DOPPLER AV Peak Velocity 106.0 cm/s AV Peak Gradient 4.5 mmHg AV Mean Gradient 3.0 mmHg AV Velocity Time Integral 12.3 cm LVOT Peak Velocity 60.2 cm/s LVOT Peak Gradient 1.4 mmHg LVOT Velocity Time Integral 5.8 cm AV Area Cont Eq vti 1.1 cm AV Area Cont Eq pk 1.3 cm Mitral E Point Velocity 65.1 cm/s Mitral A Point Velocity 62.6 cm/s Mitral E to A Ratio 1.0 LV E' Lateral Velocity 6.8 cm/s Mitral E to LV E' Lateral Ratio 9.6 LV E' Septal Velocity 3.9 cm/s Mitral E to LV E' Septal Ratio 16.7 TR Peak Velocity 301.3 cm/s TR Peak Gradient 36.3 mmHg Right Atrial Pressure 10.0 mmHg Pulmonary Artery Systolic Pressu 46.3 mmHg Right Ventricular Systolic Press 46.3 mmHg PV Peak Velocity 51.1 cm/s PV Peak Gradient 1.0 mmHg FINDINGS LEFT VENTRICLE Moderately dilated left ventricle. Wall thickness is normal. The left ventricular systolic function is severely reduced with an estimated ejection fraction less than 20%. There is abnormal septal motion consistent with an intraventricular conduction delay. RIGHT VENTRICLE The right ventricle is moderately dilated. The right ventricular systoilc function is moderately decreased. LEFT ATRIUM The left atrial size is [id number] dilated. RIGHT ATRIUM The right atrial size is moderately dilated. ATRIAL SEPTUM Atrial septal aneurysm is present (benign finding). AORTA The aortic root and proximal ascending aorta are not well visualized. MITRAL VALVE Moderate thickening of the mitral valve leaflets. Pszqlwop-di-iidvcc mitral valve regurgitation. The mitral valve regurgitation jet is directed posteriorly. Posterior leaflet appears tethered AORTIC VALVE Aortic valve sclerosis is present. No aortic valve stenosis. No aortic valve regurgitation. TRICUSPID VALVE Grossly normal tricuspid valve. There is moderate tricuspid regurgitation. The estimated pulmonary arterial pressure is 46 mmHg. PULMONARY VALVE No pulmonary valve regurgitation or stenosis. VESSELS The inferior vena cava was not well visualized. PERICARDIUM No pericardial effusion. Olman Yeung DO (Electronically Signed) Final Date:30 November 2017 16:06
--- NOTE | 2017-11-30 17:03 | MG ---
cc: Leon Brito MD EEG#: [id number] Hyperventilation not performed. Patient on fentanyl. Cataracts, heart disease. Vasopressin, vancomycin. 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 Change in mental status. Diffuse slowing amplitude beta rhythms are noted. A lot of bifrontal muscle artifact is seen. Poor general quality of the recording. No epileptiform or seizure activity is noted. The recording overall is of a low amplitude and could be medication effect. Photic stimulation is performed without significant posterior driving. At times, some 4 Hz slowing is seen bilaterally. IMPRESSION: A very low amplitude recording. It is unclear if this is medication effect. No hemisphere asymmetries are noted. No epileptiform or seizure activity was seen. Leon Brito MD DJM/TI , 04:40 PM , 05:02 PM
--- NOTE | 2017-11-30 18:58 | EKG ---
Date Performed: 11/29/2017 Time Performed: 22:12:28 PTAGE: 77 years EKG: SINUS TACHYCARDIA WITH OCCASIONAL VENTRICULAR PREMATURE COMPLEXES POSSIBLE LEFT ATRIAL ENLA RGEMENT MARKED LEFT AXIS DEVIATION LEFT BUNDLE BRANCH BLOCK ABNORMAL ECG Since the prior tracing, the re has been no significant change PREVIOUS TRACING : 11/29/2017 19.20 DOCTOR: Tarun Nino Interpretating Date/Time 11/30/2017 18:56:07
--- NOTE | 2017-12-01 07:53 | EKG ---
Date Performed: 11/29/2017 Time Performed: 19:20:12 PTAGE: 77 years EKG: ATRIAL FIBRILLATION WITH RAPID VENTRICULAR RESPONSE WITH ABERRANT CONDUCTION OR VENTRICULAR PREMATURE COMPLEXES LEFT BUNDLE BRANCH BLOCK ABNORMAL ECG Compared to PREVIOUS TRACING , the patient is no longer in Sinus rhythm . PREVIOUS TRACIN05/15/2015 07.29 DOCTOR: Tarun Nino Interpretating Date/Time 12/01/2017 07:53:11
--- NOTE | 2017-12-04 06:43 | PQ ---
Physician Query Response Document PATIENT: GIGI MALCOLM : 1940 ADMIT DATE: 11/29/2017 9:43 PM DISCH DATE: 11/30/2017 3:54 PM RESPONDING PROVIDER #: [email or web address] QUERY TEXT: Clarification of Clinical Diagnostic Findings Metabolic encephalopathy POA in the setting of severe sepsis with multi organ failure treated with IV Fluid Bolus, IV antibiotics and Mechanical ventilation Other explanation of clinical findings. Unable to determine (no explanation for clinical findings). The medical record reflects the following clinical findings, treatment, and risk factors. * Clinical Indicators AMS on admission, severe hypotension ,severe electrolyte imbalance, * Risk Factors PNA / Severe Sepsis / respiratory failure / RANJIT * Treatment IV fluid bolus, Rocephin IV, Zosyn IV, Vancomycin IV Bear Hugger The patient's Clinical Indicators include: Please clarify and document your clinical opinion in the progress notes and discharge summary includi ng the definitive and/or presumptive diagnosis (suspected or probable), related to the above clinical findings. Please include clinical findings supporting your diagnosis. Thank you, Leonela albright specified. Query created by: Leonela Zamora on 12/03/2017 11:05 AM RESPONSE TEXT: Metabolic encephalopathy POA in the setting of severe sepsis with multi organ failure treated with IV Fluid Bolus, IV antibiotics and Mechanical ventilation Electronically signed by: Elroy Cui MD 12/04/2017 6:39 AM
--- NOTE | 2017-12-06 12:37 | HHI.DS ---
Summary Note Date of : Nov 30, 2017 Time Of : 1342 Admission Date Nov 29, 2017 at 21:43 Admitting Diagnosis a fib, liver failure, PNA, UTI Diagnosis at Time of : (1) Cardiopulmonary arrest with successful resuscitation ICD Code: I46.9 - Cardiac arrest, cause unspecified Diagnosis: Principal (2) Acute respiratory failure ICD Code: J96.00 - Acute respiratory failure, unspecified whether with hypoxia or hypercapnia Diagnosis: Principal (3) Elevated troponin ICD Code: R74.8 - Abnormal levels of other serum enzymes Diagnosis: Principal (4) Elevated TSH ICD Code: R94.6 - Abnormal results of thyroid function studies Diagnosis: Secondary (5) Elevated levels of transaminase & lactic acid dehydrogenase ICD Code: R74.0 - Nonspecific elevation of levels of transaminase and lactic acid dehydrogenase [LDH] Diagnosis: Principal (6) Thrombocytopenia ICD Code: D69.6 - Thrombocytopenia, unspecified Diagnosis: Secondary (7) Mitral regurgitation ICD Code: I34.0 - Nonrheumatic mitral (valve) insufficiency Diagnosis: Principal (8) Lactic acidosis ICD Code: E87.2 - Acidosis Diagnosis: Principal (9) Left bundle branch block ICD Code: I44.7 - Left bundle-branch block, unspecified Diagnosis: Secondary (10) History of hypertension ICD Code: Z86.79 - Personal history of other diseases of the circulatory system Diagnosis: Secondary (11) Renal failure ICD Code: N19 - Unspecified kidney failure Diagnosis: Principal (12) Hyperkalemia ICD Code: E87.5 - Hyperkalemia Diagnosis: Principal (13) Hyponatremia ICD Code: E87.1 - Hypo-osmolality and hyponatremia Diagnosis: Principal (14) Hyperlipidemia ICD Code: E78.5 - Hyperlipidemia Diagnosis: Secondary (15) Acute systolic CHF (congestive heart failure) ICD Code: I50.21 - Acute systolic CHF (congestive heart failure) Diagnosis: Principal (16) Anemia ICD Code: D64.9 - Anemia, unspecified Diagnosis: Principal (17) Septic shock ICD Code: A41.9 - Sepsis, unspecified organism; R65.21 - Severe sepsis with septic shock Diagnosis: Principal Procedures Endotracheal intubation Right femoral arterial line Right femoral central line CODE BLUE CPR Brief History This is a 77-year-old female. Admission 11/29/2017. Past medical history includes ischemic cardiopathy ejection fraction 15 %, coronary artery disease status post drug-eluting stent LAD, hypertension and dyslipidemia. Patient is a chronic left bundle branch block in 2015. Patient had a cardiac catheterization 2015 with stent placement LAD. Patient also had R CA stenosis is unknown if patient had follow-up for this. Patient presented to [facility] as a Doll act. Patient was a well percent check per her friend's request was noted to be quite disheveled. Workup included baseline labs revealed potassium 5.9. Sodium 132. Creatinine of 3. Normocytic anemia. Thrombocytopenia. Lactic acid 2.5. Elevated total bilirubin/liver function tests and elevated TSH. CT brain revealed possible old left-sided CVA. Chest x-ray revealed possible right lower lobe pneumonia. Revealed likely infection. Patient received 1 L normal saline along with 1 g ceftriaxone and 5 mg azithromycin. Patient was pancultured. In the emergency department. Patient CODE BLUE due to PEA arrest. CPR including 2 mg epinephrine, 1 ampule sodium bicarbonate and 1 g of calcium chloride. Patient was emergently intubated with an 8.0 ET tube without sedation. Coalesced approximate 5 minutes. Patient did go into V. tach and required 200 J defibrillation. Postresuscitation EKG revealed sinus tachycardia with PVCs. Left bundle branch block. Left axis deviation. Patient had significant abnormalities including hyperkalemia, lactic acidosis, elevated troponin 0 0.14 in multisystem organ failure with elevated transaminases and coags. Attempts to contact healthcare proxy and daughter Deanna Denney were unsuccessful. Significant Findings Microbiology Date/Time Source Procedure Growth Status 11/29/17 19:40 Blood Peripheral Aerobic Blood Culture - Final NO GROWTH IN 5 DAYS Complete 11/29/17 19:40 Anaerobic Blood Culture - Final Pleomorphic Gram Positive Rods Complete 11/30/17 02:25 Sputum Endotracheal Gram Stain - Final Complete 11/30/17 02:25 Sputum Culture - Final Pseudomonas Species Complete 11/29/17 19:34 Urine Clean Catch Urine Culture - Final <10,000 CFU/ML GRAM NEGATIVE BECKI Complete Imaging Last Impressions Head CT 11/29/171899 Signed Impressions: Service Date/Time: Wednesday, November 29, 2017 19:49 - CONCLUSION: 1. No acute findings in the brain. 2. Unilateral perisylvian atrophy on the left side suggests possible old infarction. Everton English MD Chest X-Ray 11/29/171899 Signed Impressions: Service Date/Time: Wednesday, November 29, 2017 19:42 - CONCLUSION: Right lower lung consolidation, increased in size when compared to prior chest x-ray 2014. The left lung is clear. Everton English MD Pelvis X-Ray 11/29/17 0000 Signed Impressions: Service Date/Time: Wednesday, November 29, 2017 19:39 - CONCLUSION: The bony pelvic ring is grossly intact. Everton English MD Hospital Course Neuro/Psych: Acute encephalopathy Propofol/fentanyl drips for sedation/analgesia while intubated Goal of RA SS -[address] brain reveals 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 EEG for him is been ordered CV: Shock likely sepsis plus/minus cardiogenic History of hypertension Dyslipidemia Chronic left bundle branch block Severe mitral regurgitation Coronary disease status post stent to the LAD Ischemic cardiomyopathy ejection fraction 15% Cardiac catheterization by Dr. Montes 2014. Stent placed the LAD. RCA 80% stenosis. No drug-eluting stent at that time. Echocardiogram 2014 - ejection fraction 15% . Severe MR. Home medications are carvedilol 6 3.5 mg twice daily and lisinopril 2.5 mg p.o. daily. These been held Holding aspirin 81 mg daily and clopidogrel bisulfate 75 mg p.o. daily light of acute bleeding Holding atorvastatin 40 mg p.o. daily dyslipidemia with shock liver Holding bumetadine 0.5 milligrams daily in light of acute kidney injury. Currently on norepinephrine 25 mg/min, epinephrine 10 mg/min and vasopressin at 0.4 U/min to maintain mean arterial pressure greater than 65 Serial lactates until clear. Currently on sterile water with 3 ampules of sodium bicarbonate at 50 cc an hour Resp: Acute respiratory failure secondary to altered mental status Right lower lobe infiltrate History of tobaccoism [facility] 24/450/0.75/5/100 Ventilator bundle Albuterol/ipratropium aerosols every 6 hours with albuterol aerosols every 2 hours. Dyspnea Spontaneous breathing trials when clinically indicated Chest x-ray revealed right lower lobe infiltrate Highly doubt PE related coagulopathic state. Very poor prognosis GI: Elevated transaminases NGT to LIWS N.p.o. Famotidine for GI prophylaxis Docusate sodium/senna 1 tablet twice daily for bowel regimen : Marcos catheter has been placed for accurate I's and O's in a critically ill patient Endo: Elevated TSH Sliding scale insulin Accu-Cheks every 4 hours to maintain euglycemia with Novulin R medium regimen Check free T3/T4 in a.m. Renal: Acute kidney injury When able check CT abdomen/pelvis plus/minus renal ultrasound if unable Urine electrolytes and eosinophils pending Monitor urine output Accurate I's and O's Avoid nephrotoxic medications Heme: Normocytic anemia Thrombocytopenia Coagulopathy Monitor CBC daily. Follow trend Recheck coags in a.m. after FFP 2 units and vitamin K provided. ID: Severe sepsis Urinary tract infection Right lower lobe pneumonia/community acquired Vancomycin, piperacillin l/tazobactam, azithromycin. Also received ceftriaxone in ED Blood cultures 2, UA, influenza, sputum all pending FEN: Hyperkalemia Hyponatremia Received calcium chloride, bicarbonate/insulin/D50 in ED. Recheck pending Replace electrolytes as clinically indicated MSK: PT evaluate and treat Access -Utilize right femoral CVL day #1 placed 3/5 -Utilize right femoral arterial line day #1 placed 2/5 Prophylaxis -GI -famotidine -DVT -SCD/holding pharmacological prophylaxis in light of acute coagulopathy Critical Care: The total critical care time was 35 minutes. Time to perform other separately billable procedures was not included in the critical care time. Patient currently multisystem organ failure including respiratory failure, end-stage cardiac disease with ejection fraction of 15. Presents with shock liver, acute kidney injury and lactic acidosis. Extremely poor o prognosis. Code Status Full code Discussed Condition With Dr. Nino/ED physician. Family is unavailable and unable to be contacted. Attempted to contact daughter Deanna Denney at [phone] unsuccessful. No number for Chan Geller. Jeniffer Cancino/friend unable to contact.. This was poor last palliative care no. Patient was a DNR 2014. Palliative care evaluate the patient. They discussed with son. Patient was made a DNR. Passed on ventilator at 1342. Elroy Cui MD Dec 06, 2017 12:37
== END 2017-11-30 15:54 | disposition expired | DRG 208 ==
LOC: NEPE 18:43 → NEDA 21:43 → N03B 11-30 00:44
PROVIDERS: ADMIT Internal Medicine Critical Care Medicine; ATTEND Internal Medicine Critical Care Medicine
PROC: 5A1935Z Respiratory Ventilation, Less than 24 Consecutive Hours (ICD-10-PCS; principal; 2017-11-29)
PROC: 5A12012 Performance of Cardiac Output, Single, Manual (ICD-10-PCS; 2017-11-29)
PROC: 0BH17EZ Insertion of Endotracheal Airway into Trachea, Via Natural or Artificial Opening (ICD-10-PCS; 2017-11-29)
PROC: 0T9B70Z Drainage of Bladder with Drainage Device, Via Natural or Artificial Opening (ICD-10-PCS; 2017-11-29)
PROC: 04HK33Z Insertion of Infusion Device into Right Femoral Artery, Percutaneous Approach (ICD-10-PCS; 2017-11-29)
DX: J96.01 Acute respiratory failure with hypoxia (principal); R65.21 Severe sepsis with septic shock; I46.9 Cardiac arrest, cause unspecified; K72.00 Acute and subacute hepatic failure without coma; A41.9 Sepsis, unspecified organism; G93.41 Metabolic encephalopathy; I95.9 Hypotension, unspecified; I50.21 Acute systolic (congestive) heart failure; J18.9 Pneumonia, unspecified organism; N17.9 Acute kidney failure, unspecified; E87.2 Acidosis; I47.2 Ventricular tachycardia; E87.1 Hypo-osmolality and hyponatremia; N39.0 Urinary tract infection, site not specified; D68.9 Coagulation defect, unspecified; T68.XXXA Hypothermia, initial encounter; D69.6 Thrombocytopenia, unspecified; E87.5 Hyperkalemia; G62.9 Polyneuropathy, unspecified; R15.9 Full incontinence of feces; I11.0 Hypertensive heart disease with heart failure; I25.5 Ischemic cardiomyopathy; I25.10 Atherosclerotic heart disease of native coronary artery without angina pectoris; E78.5 Hyperlipidemia, unspecified; I44.7 Left bundle-branch block, unspecified; I34.0 Nonrheumatic mitral (valve) insufficiency; E11.42 Type 2 diabetes mellitus with diabetic polyneuropathy; D64.9 Anemia, unspecified; I48.91 Unspecified atrial fibrillation; Z51.5 Encounter for palliative care; Z95.5 Presence of coronary angioplasty implant and graft; Z87.891 Personal history of nicotine dependence; Z86.73 Personal history of transient ischemic attack (TIA), and cerebral infarction without residual deficits; Z79.899 Other long term (current) drug therapy
CPT/HCPCS: 31500; 36430; 51702; 70450; 71045; 72190; 76775; 80053; 80061; 80307; 81001; 82140; 82150; 82550; 82552; 82570; 82805; 83605; 83690; 83735; 83880; 84100; 84132; 84300; 84439; 84443; 84481; 84484; 85025; 85384; 85610; 85730; 86965; 87040; 87070; 87086; 87205; 93005; 93306; 94002; 94003; 94640; 94664; 95819; 96365; 96368; J0171; J0456; J0696; J1250; J1815; J2543; J3010; J3370; J7030; J7050; J7060